=== PATIENT | male | born 1935 | race Caucasian/White ===

== ENCOUNTER → 2016-12-07 | Outpatient (REF) | payer MEDICARE ==
[2016-12-07 12:20] LABS: FOLATE > 24.0 NG/ML; VITAMIN B12 LEVEL 661 PG/ML
[2016-12-07 12:32] LABS: ALBUMIN 4.1 GM/DL (3.2-5.2); ALBUMIN/GLOBULIN RATIO 1.41 (1.00-1.93); ALKALINE PHOSPHATASE 74 U/L (45-117); ALT/SGPT 18 U/L (12-78); ANION GAP 6 MEQ/L (8-16); AST/SGOT 15 U/L (15-37); BILIRUBIN,TOTAL 0.6 MG/DL (0.2-1.0); BLOOD UREA NITROGEN 12 MG/DL (7-18); CALCIUM LEVEL 9.2 MG/DL (8.8-10.2); CARBON DIOXIDE LEVEL 30 MEQ/L (21-32); CHLORIDE LEVEL 105 MEQ/L (98-107); CREATININE FOR GFR 1.08 MG/DL (0.70-1.30); GLOMERULAR FILTRATION RATE > 60.0 (>42); GLUCOSE, FASTING 103 MG/DL (83-110); MAGNESIUM LEVEL 2.2 MG/DL (1.8-2.4); POTASSIUM SERUM 4.5 MEQ/L (3.5-5.1); SODIUM LEVEL 141 MEQ/L (136-145)
== END ==
LOC: M SFHCPLAZ 08:38
PROVIDERS: ATTEND Internal Medicine
DX: I10 Essential (primary) hypertension (principal); R53.82 Chronic fatigue, unspecified

== ENCOUNTER 2017-07-13 15:09 | Inpatient (IN) | payer MEDICARE ==
[~2017-07-13] VITALS: Ht 172.7 cm; Wt 93.0 kg
[2017-07-13] MEDS ORDERED: VENTAER INH (15:28)
[2017-07-13] MEDS ORDERED: BUPR150T3 PO (15:28)
[2017-07-13] MEDS ORDERED: ASPI81TA85 PO (15:28)
[2017-07-13] MEDS ORDERED: COQ1200C2 PO (15:28)
[2017-07-13] MEDS ORDERED: NITR0.4S14 SL (15:28)
[2017-07-13] MEDS ORDERED: OMEP20CA3 PO (15:28)
[2017-07-13] MEDS ORDERED: CART240C3 PO (15:28)
[2017-07-13] MEDS ORDERED: ATOR1TAB19 PO (15:28)
[2017-07-13] MEDS ORDERED: FLOM5CAP PO (15:28)
[2017-07-13] MEDS ORDERED: NORC1TAB4 PO (15:28)
[2017-07-13] MEDS ORDERED: LOSA100T36 PO (15:28)
[2017-07-13] MEDS ORDERED: MORPHINE 4 MG/ML 1ML SYRINGE IV ONE ×2 (15:45→16:45)
--- NOTE | 2017-07-13 16:20 | REP ---
CT study of the cervical spine without contrast: History: Trauma. Technique: Helical scanning is acquired and overlapping 2 mm high resolution axial images were generated and reviewed at bone and soft tissue window settings. Coronal and sagittal multiplanar re-formations images are generated. CT findings: There is no evidence of cervical spine element fracture. No skull base fracture is seen. Cervical vertebral body heights are preserved. Alignment is normal. Facet joints are normally aligned bilaterally at each cervical level on multiplanar re-formations images. There is no evidence of intraspinal or paraspinal hematoma. No extra vertebral abnormality is seen. There is degenerative spondylosis change with degenerative disc disease in the noted in multiple levels most pronounced at C3-4, C5-6 and C6-7. Osteoarthritic changes are noted in the facet joints throughout the cervical spine. Impression: Degenerative spondylosis. Otherwise negative CT study of the cervical spine without contrast. No fracture seen. Signed by Timothy Earl MD 07/13/2017 05:01 P
--- NOTE | 2017-07-13 16:20 | REP ---
CT study brain without contrast: History: Trauma. Findings: Preliminary digital carbonizer radiograph is unremarkable. Bone window settings show no evidence of skull fracture or significant scalp hematoma. Vascular calcification is observed in the distal vertebral and distal carotid arteries. There is diffuse mild cerebral atrophy. Small vessel periventricular white matter changes are seen. There is no evidence of intracranial hemorrhage. No mass, extra-axial fluid collection, infarct or midline shift is seen. Impression: Vascular calcification, diffuse atrophy and small vessel changes. No acute intracranial abnormality. Signed by Timothy Earl MD 07/13/2017 05:01 P
--- NOTE | 2017-07-13 16:31 | REP ---
AP pelvis and left hip total four views: Comparison is 03/28/2007. On the AP pelvis. There is an old healed impacted fracture of the right femoral neck, unchanged from the prior study. There is an acute left femoral neck fracture with cephalic and slight migration of the proximal fracture fragment. No dislocation. Left hip three views: There is a femoral neck fracture with slight cephalic migration of the distal fracture fragment. No dislocation. No other acute pelvic fractures are identified. Signed by Adriano Song MD 07/13/2017 04:22 P
--- NOTE | 2017-07-13 16:33 | REP ---
Chest, single AP view, the patient supine: There are no comparison studies. The patient's comparison study of 07/13/2017 is not available on the PACS archive for reasons unknown to this examiner. There are no infiltrates or effusions. There is a 6 mm left lower lobe lung nodule. I cannot document stability of this nodule in the absence of prior studies. CT might be considered for further evaluation. I suspect there is a hiatal hernia. Cardiac size is normal. The wilmar, mediastinum, and bony thorax are unremarkable. Impression: There are no acute infiltrates or effusions. There is a 6 mm nodule inferiorly in the left lung. Probable hiatal hernia. Signed by Adriano Song MD 07/13/2017 04:25 P
--- NOTE | 2017-07-13 16:34 | REP ---
Left femur three views: Comparison is the left hip dated 03/08/2017. There is a fracture of the femoral neck with slight cephalic migration of the distal fracture fragment. No dislocation. No other fractures of the left femur are identified. There are no calcifications or foreign bodies. Signed by Adriano Song MD 07/13/2017 04:26 P
[2017-07-13 16:38] LABS: BASO # 0.1 10^3/uL (0.0-0.2); BASO % 0.5 % (0.0-1.0); EOS % 0.2 % (0.0-3.0); IMMATURE GRANULOCYTE % 0.5 % (0-0); LYMPH # 1.1 10^3/uL (1.5-4.5); LYMPH % 7.5 % (24.0-44.0); MEAN CORPUSCULAR HEMOGLOBIN 32.3 pg (27.0-33.0); MEAN CORPUSCULAR VOLUME 94.9 fl (80.0-96.0); MONO # 1.3 10^3/uL (0.0-0.8); MONO % 8.9 % (0.0-5.0); NEUTROPHILS # 12.3 10^3/uL (1.8-7.7); NEUTROPHILS % 82.4 % (36.0-66.0); PLATELET COUNT, AUTOMATED 343 10^3/uL (150-450); WHITE BLOOD COUNT 14.9 10^3/uL (4.0-10.0)
[2017-07-13 16:54] LABS: ANION GAP 9 MEQ/L (8-16); BLOOD UREA NITROGEN 20 MG/DL (7-18); CALCIUM LEVEL 9.2 MG/DL (8.8-10.2); CARBON DIOXIDE LEVEL 28 MEQ/L (21-32); CHLORIDE LEVEL 102 MEQ/L (98-107); GLOMERULAR FILTRATION RATE > 60.0 (>35); GLUCOSE, FASTING 110 MG/DL (83-110); POTASSIUM SERUM 4.7 MEQ/L (3.5-5.1); SODIUM LEVEL 139 MEQ/L (136-145)
[2017-07-13] MEDS ORDERED: NS 1,000 ML IV SCH (17:09)
[2017-07-13] MEDS: NS 1,000 ML IV SCH (17:20)
[2017-07-13] MEDS ORDERED: BISACODYL 5 MG TAB PO PRN (17:45)
[2017-07-13] MEDS ORDERED: ONDANSETRON 4MG/2ML VIAL (J2405) IV PRN (17:45)
[2017-07-13] MEDS ORDERED: ACETAMINOPHEN TAB 650MG DOSE (2X325MG) PO PRN (17:45)
[2017-07-13] MEDS ORDERED: MORPHINE 2 MG/ML 1ML SYRINGE IV PRN (17:45)
[2017-07-13 17:56] LABS: INR 1.04
[2017-07-13] MEDS ORDERED: NASA1SPR (17:58)
[2017-07-13] MEDS: PERCOCET 5MG/325MG TAB PO PRN ×2 (18:50→23:11)
[2017-07-13] MEDS ORDERED: ALBUTEROL 90 MCG/ACT 8GM HFA INHALER INH PRN (19:45)
[2017-07-13] MEDS ORDERED: NITROGLYCERIN 0.4 MG SUBL TABLET SL PRN (19:45)
[2017-07-13] MEDS: TAMSULOSIN 0.4 MG CAP PO SCH (21:31)
[2017-07-13] MEDS: ATORVASTATIN 10 MG TAB PO SCH (21:31)
[2017-07-13] MEDS: OMEPRAZOLE 20 MG CAP PO SCH (21:31)
[2017-07-13] MEDS: LOSARTAN 50 MG TAB PO SCH (21:32)
[2017-07-13 22:00] VITALS: BP 146/65
--- NOTE | 2017-07-14 04:48 | ECGEPIP ---
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
[2017-07-14 06:00] VITALS: BP 118/59
[2017-07-14] MEDS: NS 1,000 ML IV SCH (06:16)
[2017-07-14] MEDS: PERCOCET 5MG/325MG TAB PO PRN ×3 (06:16→22:27)
--- NOTE | 2017-07-14 06:40 | CR ---
DATE OF CONSULTATION: 07/13/2017 CHIEF COMPLAINT: Left hip fracture. HISTORY OF PRESENT ILLNESS This 82-year-old gentleman was carrying some crates to [facility] down the stairs, fell, injury occurred at home, had significant discomfort and could not ambulate. Injury happened about 12:30. There was a significant amount of time invested getting the patient out of his house to get to the hospital. He complains of left hip pain and groin pain. He did not have a loss of consciousness. He does have a history of right femoral fracture treated by Dr. Rizvi in the past with xavier placement and removal about 50 years ago. Never had problems with the left hip before. Imaging studies of the left hip reflect femoral neck fracture displaced. PAST MEDICAL HISTORY: Medical history includes coronary artery disease with stent placement in the past. Hypertension. The patient states otherwise reasonably healthy. Never had a heart attack. PAST SURGICAL HISTORY Includes Juitt nail right femur in the past. SOCIAL HISTORY: He is retired. Does not smoke. , accompanied by his spouse. FAMILY HISTORY: Not contributory. ALLERGIES: Does report an allergy to PENICILLINS producing rash. REVIEW OF SYSTEMS: Complaining only of hip pain around the left hip, groin region, and some across the low back posterior to the left hip. Denying numbness, tingling currently in lower extremities. Denying chest pain, denying headache, denying nausea, shortness of breath, endocrine trouble or skin trouble CLINICAL EXAMINATION: Alert and cooperative. Mood and affect appropriate. Appears his stated vintage of 82 or a bit younger. Healthy skin, face, upper and lower extremities. He has mild obesity. Warm, well-perfused lower extremities. Palpable pulse regular at a pace of about 76 beats per minute. Dorsalis pedis pulses palpable. No swelling about the knees, Pain with any manipulation of the left hip. Abdomen is not distended. Normocephalic, atraumatic. No shortness of breath. IMAGING STUDIES: As above. LABORATORY FINDINGS: Hematocrit 41.2, white blood cell count 14.9. INR 1.04. Creatinine 1.2. MEDICATIONS AT HOME: Include aspirin and blood pressure medications. Denies anticoagulants. IMPRESSION: Left hip femoral neck fracture displaced. RECOMMENDATIONS: I coordinated with the hospitalist service for medical optimization. I talked with Dr. Vences. We will place the patient on the operating room schedule as an add-on for tomorrow pending medical optimization. I had a discussion with the patient about the surgery to be performed. This included a virgilio discussion of the pathology involved, procedure proposed which will be a cemented hemiarthroplasty or partial hip replacement. This include but are not limited to pain, failure, need for more surgery, dislocation, infection, , blood clots and other issues. The patient understands the risks. He agrees to proceed with surgery. For further details, please refer to the medical record. Approximately 55 minutes was invested in the workup and care of this patient, more than 50% of which was [id number] time, and additional time spent in coordination of care.
[2017-07-14] MEDS ORDERED: CLINDAMYCIN 600 MG in APPROPRIATE DILUENT 1 EA IV ONE (06:45)
[2017-07-14 07:10] LABS: BASO # 0.1 10^3/uL (0.0-0.2); BASO % 0.8 % (0.0-1.0); EOS # 0.2 10^3/uL (0.0-0.50); IMMATURE GRANULOCYTE % 0.2 % (0-0); LYMPH # 1.1 10^3/uL (1.5-4.5); LYMPH % 13.2 % (24.0-44.0); MEAN CORPUSCULAR HEMOGLOBIN 32.7 pg (27.0-33.0); MEAN CORPUSCULAR HGB CONC 34.5 g/dl (32.0-36.5); MEAN CORPUSCULAR VOLUME 94.8 fl (80.0-96.0); NEUTROPHILS # 6.1 10^3/uL (1.8-7.7); NEUTROPHILS % 71.8 % (36.0-66.0); PLATELET COUNT, AUTOMATED 266 10^3/uL (150-450); WHITE BLOOD COUNT 8.5 10^3/uL (4.0-10.0)
[2017-07-14 07:24] LABS: INR 1.17
[2017-07-14 07:37] LABS: ANION GAP 7 MEQ/L (8-16); BLOOD UREA NITROGEN 16 MG/DL (7-18); CALCIUM LEVEL 7.9 MG/DL (8.8-10.2); CARBON DIOXIDE LEVEL 26 MEQ/L (21-32); CHLORIDE LEVEL 104 MEQ/L (98-107); CHOLESTEROL LEVEL 130 MG/DL (<200); CREATININE FOR GFR 0.99 MG/DL (0.70-1.30); GLOMERULAR FILTRATION RATE > 60.0 (>35); GLUCOSE, FASTING 111 MG/DL (83-110); SODIUM LEVEL 137 MEQ/L (136-145); TRIGLYCERIDES LEVEL 50 MG/DL (<150)
--- NOTE | 2017-07-14 07:37 | HPE ---
DATE OF ADMISSION: 07/13/2017 PRIMARY CARE PROVIDER: Dr. Timmy Sylvester INPATIENT HOSPITALIST ATTENDING: Dr. Tra Peña CHIEF COMPLAINT: Fall. Left hip fracture. HISTORY OF PRESENT ILLNESS: This is an 82-year-old male with history of coronary artery disease (CAD), with stent. The patient follows with Dr. Osman, channel lip wetter at [facility] in [place], hypertension, left anterior descending (LAD), annuloplasty 2002, right coronary artery (RCA) stent August 2004, repeat stent for same lesion, and prior stent on 09/2006. Cardiac catheter 06/2008 with patent stents and significant LAD disease. Echocardiogram September 2016, injection fraction 55 to 60% with no reversible ischemia, presbyesophagus by upper endoscopy July 2005, Raynaud's phenomenon secondary to Toprol presents to the emergency room with complaints of hip pain, status post fall at home. The patient was unloading cases from [employer] into his cellar when he missed a step and landed on his buttock and hip causing severe pain, unable to ambulate. He was found to have a femoral neck fracture and subsequently brought in to the emergency room for surgical repair. The patient denies any prodromal symptoms, chest pain, pressure, tightness, diaphoresis, palpitations, lightheadedness, or near syncopal episode prior to the episode. He has been in his usual state of health and had stress test done less than 6 months ago and has seen Dr. Osman in May with a "clean bill of health" by his channel lip wetter at [facility] in [place]. In the ER left femoral x-rays shows a fracture of the femoral neck with slight cephalic migration with distal fracture fragment , but no dislocation. The patient is planned for surgical intervention in the morning. EKG shows sinus rhythm, marked LAD and right bundle branch block, otherwise, troponins are negative and patient is denying any chest pain, pressure or tightness. The patient has had head trauma with no loss of consciousness or confusion. CT of the head was negative and no acute intracranial abnormalities. PAST MEDICAL HISTORY: CAD, stents. Recent stress test, Dr. Osman less than 6 months ago. Echocardiogram with ejection fraction of 60 to 65%. No significant valvular disease. Hypertension. Hypercholesterolemia. Obesity. Raynaud's phenomenon secondary to beta blockade. Urine retention. Polyosteoarthritis. Pseudoclaudication. Presbyesophagus. PAST SURGICAL HISTORY: Stent placements, RCA stent August 2004, September 2006, cardiac cath 06/2008. Stress echocardiogram September 2016, EF 55 to 60% with no reversible ischemia. Inguinal herniorrhaphy. Transurethral resection of prostate (TURP) procedure 07/2009. Repeat stricture dilation 01/2010. 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 Former smoker. Quit smoking over 10 years ago. No alcohol use. FAMILY HISTORY: Father of laryngeal cancer (CA), mother of some sort of intestinal carcinoma and CVA. Sister with hypercholesterolemia, another sister alive and well. ALLERGIES: PENICILLIN, causing hives. DUST and POLLEN. VYTORIN, causing urinary retention. CRESTOR, muscle aches. ZETIA, muscle aches. CYMBALTA, diarrhea. HOME MEDICATIONS: - Barton 5/325 one tablet every 4 as needed for pain - aspirin 81 daily - Co-Enzyme Q 200 every pm - Nasacort two sprays daily as needed - albuterol as needed every 4 - atorvastatin 10 mg every pm - bupropion 150 mg daily - cardia 240 mg daily - losartan 100 every pm - nitroglycerin 0.4 as needed - omeprazole 20 mg twice a day - Flomax 0.4 every pm REVIEW OF SYSTEMS: Per HPI, 12-point system otherwise negative. PHYSICAL EXAMINATION: Temperature 98, pulse 78, respiratory rate 16, blood pressure 136/70, 96% on room air. GENERAL: The patient is awake, alert and oriented times three. Appears younger than his stated age. No jugular venous distention. No thyromegaly. Pupils round, reactive to light and accommodation. Moist mucous membranes. No thyromegaly, cervical lymphadenopathy. No carotid bruits. Lungs are clear to auscultation. No wheezing, rales or rhonchi. Heart: S1, S2. Sinus rhythm. No murmurs, rubs or gallops. Abdomen is obese, soft, nontender. Nondistended. Extremities: No cyanosis, clubbing or any pitting edema. Skin: Warm, dry, well perfused. The patient has some limited range of motion of the left hip secondary to severe pain on external rotation. LABORATORY DATA: White count 14.9, hemoglobin 14, hematocrit 41, platelet count 343. Sodium 139, potassium 4.7, chloride 102, bicarbonate 20, BUN 20, creatinine 1.2, glucose of 110. EKG: Sinus rhythm, ventricular rate of 84, marked LAD right bundle branch block. Cardiac marker pending. IMAGING STUDIES: Femoral x-ray shows fracture of the femoral neck with slight cephalic migration distal fracture segment. No dislocation. CT of the head: No acute intracranial pathology. Hip and pelvic x-ray: Femoral neck fracture. Distal fracture fragment. No dislocation. Cervical spine CT: Negative CT of the cervical spine. Chest x-ray: No acute infiltrate. 6 mm nodule inferiorly in the left lung. Probable hiatal hernia. ASSESSMENT AND PLAN: This is an 82-year-old male that was in his usual state of health, missed a step while bringing cases down from [employer] into his cellar. Fell backwards after missing a step and hit his head, hip and landed on his left hip, sustaining a left femoral neck fracture. The patient had a recent stress test with Dr. Osman at [facility] in [place] which was negative for ischemia. The patient is admitted for ORIF and hip replacement. The patient will be admitted as an inpatient for two midnights and will be assigned to Dr. Tra Peña for the following issues: 1. Preoperative medical clearance. Patient was in his usual state of health, had no prodromal symptoms. Denies any chest pain, pressure, tightness, lightheadedness, or near syncopal episode prior to the fall. It appears to have been a mechanical fall after missing a step. He has had a stress test done recently from his channel lip wetter's office in [place], Dr. Osman. Will obtain those records prior to clearing for surgery. The patient may resume all medications except the anticoagulation, antiplatelets, therefore will hold the patient's aspirin, but may continue his blood pressure medications including diltiazem and losartan. May continue on Lipitor for now. Again, until we have reviewed patient's stress test, the patient is not cleared for surgery at this time. Nurses have been made aware that the patient should sign medical release form and the records should be sent over. The patient will be kept nothing by mouth after midnight, however, in preparation for surgery, once medically cleared. 2. Left hip femoral neck fracture, status post mechanical fall. Pain medications. Orthopedic surgery, Dr. Parks has been made aware. I do not anticipate any issues if patient's stress test is normal, but will obtain those records prior to clearance for surgery. Dr. Peña will be following up in the morning. At this time, all anticoagulants will be held. Patient will be given morphine, Percocet for pain control. Bedrest for now until surgical intervention. 3. Hypertension. Continue home dose of diltiazem, losartan. 4. Hyperlipidemia. Continue on Lipitor. 5. Abnormal EKG with right bundle branch block. Prior history of CAD and stent placement. Obtain recent stress test result from patient's cardiologists in [place], Dr. Loya. Check cardiac markers. EKG has no acute ischemia. 6. Leukocytosis. Most likely reactive. 7. Obesity. Check lipid profile in the morning. Continue on his statins. 8. Deep venous thrombosis (DVT) prophylaxis with compression stockings. The patient will be assigned to Dr. Tra Peña at 7:00 pm 07/13/2017. ABEL
[2017-07-14] MEDS: OMEPRAZOLE 20 MG CAP PO SCH (09:14)
[2017-07-14] MEDS: buPROPion **XL** TABLET 150MG (WELLBUTRIN XL) PO SCH (09:14)
[2017-07-14 14:00] VITALS: BP 146/66
--- NOTE | 2017-07-14 15:01 | IPNPDOC ---
Text Note Date of Service The patient was seen on 07/14/17. NOTE Subjective: Patient states he feels well. Has occasional dizziness. Denies chest pain/palpitations. States he is able to go up 2 flights of stairs without chest pain/palpitations. States this fall was a mechanical fall down the stairs. His pain is well-controlled. I have also spoken to his exchange floor manager Dr. Miroslava Loya, who notes that the patient had greater than 7 mets while doing the stress echo recently, and there is no concern for ischemia. She also notes that the patient had a nuclear stress test 2 years ago. She recommends no further cardio workup prior to his hip replacement. Objective: Vitals: (see below) General: No acute distress, laying comfortably in bed. HEENT: Moist mucous membranes. Neck: No JVD or lymphadenopathy Cardiac: RRR, No murmurs Pulm: Clear to auscultation b/l. No wheezing, rhonchi Abd: NT/ND + BS Ext: No edema or cyanosis. Left hip pain with movement. Distal pulses intact. Labs (see below) Images: Assessment/Plan 1. Acute hip fracture status post mechanical fall. Orthopedics on consult with plan to go to the OR today. Patient was able to do greater than 7 METs on stress echo recently. He has been cleared by his exchange floor manager Dr. Loya for his hip replacement. The patient denied chest pain/palpitations prior to this fall. RCR I of 1, 0.9% risk of major cardiac event. Intermediate risk procedure. Patient is medically optimized. 2. History of CAD status post PCIx2. Aspirin held prior to surgery. Will need this restarted once patient completes anticoagulation for DVT prophylaxis. 3. Hypertension- controlled continue home meds 4. Hyperlipidemia- on statin 5. Leukocytosis- likely reactive. No signs of infection. We'll continue to monitor. 6. Obesity DVT prophy: SCDs for now, per orthopedics after OR Demetra HATHAWAY, I+O VSDemetra, I+O Laboratory Tests 07/13/17 16:21 Red Blood Count 4.34, Mean Corpuscular Volume 94.9, Mean Corpuscular Hemoglobin 32.3, Mean Corpuscular Hemoglobin Concent 34.0, Red Cell Distribution Width 14.0 , Neutrophils (%) (Auto) 82.4 H, Lymphocytes (%) (Auto) 7.5 L, Monocytes (%) ( Auto) 8.9 H, Eosinophils (%) (Auto) 0.2, Basophils (%) (Auto) 0.5, Neutrophils # (Auto) 12.3 H, Lymphocytes # (Auto) 1.1 L, Monocytes # (Auto) 1.3 H, Eosinophils # (Auto) 0.0, Basophils # (Auto) 0.1, Calcium Level 9.2, Total Creatine Kinase 182 07/14/17 07:00 Red Blood Count 4.07 L, Mean Corpuscular Volume 94.8, Mean Corpuscular Hemoglobin 32.7, Mean Corpuscular Hemoglobin Concent 34.5, Red Cell Distribution Width 14.0, Neutrophils (%) (Auto) 71.8 H, Lymphocytes (%) (Auto) 13.2 L, Monocytes (%) (Auto) 12.0 H, Eosinophils (%) (Auto) 2.0, Basophils (%) ( Auto) 0.8, Neutrophils # (Auto) 6.1, Lymphocytes # (Auto) 1.1 L, Monocytes # ( Auto) 1.0 H, Eosinophils # (Auto) 0.2, Basophils # (Auto) 0.1 Vital Signs Date Time Temp Pulse Resp B/P (MAP) Pulse Ox O2 Delivery O2 Flow Rate FiO2 07/14/17 09:14 79 118/59 07/14/17 06:50 Nasal Cannula 2.0 07/14/17 06:46 17 07/14/17 06:00 99.1 88 I&O- Last 24 Hours up to 6 AM 07/15/17 06:00 Output Total 100 ml Balance -100 ml WARNER VAZQUEZ MD Jul 14, 2017 15:01
[2017-07-14] MEDS ORDERED: CLINDAMYCIN INJ 900MG/6ML VIAL As Ordered ONE (17:00)
[2017-07-14] MEDS ORDERED: EPINEPHrine INJ 1 MG/ML 1ML AMP As Ordered ONE (19:21)
[2017-07-14] MEDS ORDERED: VANCOMYCIN 1000 MG/20 ML VIAL (J3370) As Ordered ONE (19:37)
[2017-07-14] MEDS ORDERED: LIDOCAINE W/EPINEPHRINE 1% 20ML VIAL As Ordered ONE (19:45)
[2017-07-14] MEDS ORDERED: BUPIVACAINE LIPOSOME/PF 1.3% 20 ML VIAL (13.3MG/ML)(EXPAREL) As Ordered ONE (19:45)
[2017-07-14] MEDS ORDERED: PHENYLephrine HCL 500 MCG/5 ML (100MCG/ML) SYRINGE (J2370) As Ordered ONE (20:19)
[2017-07-14] MEDS ORDERED: ePHEDrine SULFATE 25 MG/5 ML(5MG/ML) SYRINGE As Ordered ONE (20:19)
[2017-07-14] MEDS ORDERED: PROPOFOL 200 MG/20 ML VIAL As Ordered ONE ×2 (20:30→21:52)
[2017-07-14] MEDS ORDERED: LR 1,000 ML IV SCH (22:00)
[2017-07-14] MEDS ORDERED: fentaNYL 100 MCG/2 ML INJECTION (J3010) IV PRN (22:00)
[2017-07-14] MEDS ORDERED: METOCLOPRAMIDE INJ 10MG/2ML VIAL (J2765) IV PRN (22:00)
[2017-07-14] MEDS ORDERED: ONDANSETRON 4MG/2ML VIAL (J2405) IV PRN ×2 (22:00→23:45)
[2017-07-14] MEDS ORDERED: PERCOCET 5MG/325MG TAB PO PRN ×2 (22:00→23:45)
[2017-07-14] MEDS ORDERED: LEVALBUTEROL 1.25 MG/0.5 ML CONCENTRATE NEB As Ordered ONE (22:23)
[2017-07-14] MEDS ORDERED: PERCOCET 5MG/325MG TAB As Ordered ONE (23:21)
[2017-07-14] MEDS ORDERED: WARFARIN SOD 1 MG TAB PO ONE (23:45)
[2017-07-14] MEDS ORDERED: MORPHINE 4 MG/ML 1ML SYRINGE IV PRN (23:45)
[2017-07-14] MEDS ORDERED: WARFARIN SOD 2.5 MG TAB PO ONE (23:45)
[2017-07-15] VITALS (9 sets, daily range): BP systolic 108–161; BP diastolic 52–70
[2017-07-15] MEDS: ATORVASTATIN 10 MG TAB PO SCH ×2 (00:38→20:48)
[2017-07-15] MEDS: TAMSULOSIN 0.4 MG CAP PO SCH ×3 (00:38→20:47)
[2017-07-15] MEDS: D5W/LR 1,000 ML IV SCH ×2 (00:38→09:45)
[2017-07-15] MEDS: LOSARTAN 50 MG TAB PO SCH ×2 (00:39→20:49)
[2017-07-15] MEDS: OMEPRAZOLE 20 MG CAP PO SCH ×3 (00:41→20:48)
[2017-07-15] MEDS: PERCOCET 5MG/325MG TAB PO PRN ×4 (05:35→20:48)
[2017-07-15] MEDS ORDERED: VANCOMYCIN HCL 1,000 MG, VIAL MATE ADAPTER 1 EACH in D5W 250 ML IV ONE (06:00)
--- NOTE | 2017-07-15 10:17 | REP ---
LEFT HIP: Two views of the left hip are performed. There is a femoral prosthesis at the hip. Osseous structures are intact and well aligned. Signed by Adriano Pinon MD 07/15/2017 04:57 P
[2017-07-15 11:02] LABS: MEAN CORPUSCULAR HEMOGLOBIN 32.8 pg (27.0-33.0); MEAN CORPUSCULAR HGB CONC 34.4 g/dl (32.0-36.5); MEAN CORPUSCULAR VOLUME 95.2 fl (80.0-96.0); PLATELET COUNT, AUTOMATED 241 10^3/uL (150-450); RED CELL DISTRIBUTION WIDTH 13.8 % (11.5-14.5); WHITE BLOOD COUNT 10.4 10^3/uL (4.0-10.0)
[2017-07-15 11:12] LABS: INR 1.15
[2017-07-15 11:21] LABS: ANION GAP 6 MEQ/L (8-16); BLOOD UREA NITROGEN 10 MG/DL (7-18); CALCIUM LEVEL 7.8 MG/DL (8.8-10.2); CARBON DIOXIDE LEVEL 29 MEQ/L (21-32); CHLORIDE LEVEL 99 MEQ/L (98-107); CREATININE FOR GFR 0.99 MG/DL (0.70-1.30); GLOMERULAR FILTRATION RATE > 60.0 (>35); GLUCOSE, FASTING 137 MG/DL (83-110); MAGNESIUM LEVEL 1.9 MG/DL (1.8-2.4); POTASSIUM SERUM 4.1 MEQ/L (3.5-5.1); SODIUM LEVEL 134 MEQ/L (136-145)
[2017-07-15] MEDS: MOM 30ML SUSPENSION UDC PO SCH (12:05)
[2017-07-15] MEDS: METAMUCIL (PSYLLIUM) PACKET PO SCH (12:05)
[2017-07-15] MEDS: buPROPion **XL** TABLET 150MG (WELLBUTRIN XL) PO SCH (12:07)
[2017-07-15] MEDS ORDERED: WARFARIN SOD 5 MG TAB PO ONE (17:00)
--- NOTE | 2017-07-15 21:24 | IPN ---
DATE: 07/13/2017 Patient seen and examined. Patient was febrile overnight. This morning, patient had a bout of urinary retention with 600 postvoid residual after straight catheterization and subsequently, during the day today, patient was able to void. Denies any chest pain, pressure, discomfort. Passing gas. Has not had a bowel movement yet. Denies any respiratory distress. Currently comfortable. VITAL SIGNS: Temperature 102, pulse 99, respirations 18, blood pressure 143/69, pulse oximetry 89% on 2 liters nasal cannula. LABORATORY: WBC 10.4, hemoglobin and hematocrit (H and H) 11.7 and 34, platelets 241. Chemistry: Sodium 134, potassium 4.1, chloride 99, BUN 10, creatinine 0.99, bicarbonate 29. Urinalysis (UA) has been negative. PHYSICAL EXAMINATION: GENERAL: Patient alert and comfortable, in no acute distress. HEENT: Normocephalic, atraumatic. Moist mucous membranes. NECK: Supple. CARDIAC: Regular rate and rhythm. Normal S1, S2. PULMONARY: Bilateral clear to auscultation. No wheezes, rales or rhonchi. ABDOMEN: Soft, nontender, obese. Positive bowel sounds. EXTREMITIES: Distal pulses intact. Left hip dressing clean, dry, intact, with mild bruising. No edema bilateral lower extremities. ASSESSMENT AND PLAN: This is an 82-year-old male patient with underlying medical history of coronary artery disease with stents. Cardiology, Dr. Loya, at [facility]. Hypertension with left anterior descending annuloplasty 2002, right coronary artery stent August 2004, repeat stent of the same lesion and prior stent in 2006, cardiac catheterization in June 2008 with patent stent, insignificant left anterior descending (LAD) disease. Echocardiogram in September shows ejection fraction (EF) of 55. September 2016 was 55-60% ejection fraction. Regnaud's phenomenon. Patient was in his usual state of health, missed a step when bringing case down from [email or web address] to his cellar, fell backwards after missing a step and hit his head and hip and landed on his left hip, sustaining a left femoral neck fracture. Patient had recent stress test by Dr. Loya at [facility] in [place], which was negative for ischemic disease. Status post surgery with hemiarthroplasty. PROBLEMS: 1. Acute left hip fracture. Status post surgery by orthopedics, postoperative day number one. Patient has no recent cardiac event. Holding aspirin given patient is currently on Coumadin. Activity status, wound care, weightbearing, physical therapy, deep venous thrombosis (DVT) prophylaxis, are as per orthopedics. Bowel regimen prescribed. Team management as per orthopedics. Patient on Coumadin. Follow up INR. 2. History of coronary artery disease. Aspirin on hold, given patient is on Coumadin. Will consider restarting aspirin as outpatient. Continue statin. 3. Fevers. Likely reactive to the fracture. Culture has been sent. Urinalysis (UA) has been negative. 4. Urinary retention. Patient was straight catheterized. UA has been negative. Flomax has been added. Will continue to monitor closely with bladder scans. 5. Hypertension. Continue Cardizem, losartan. Monitor blood pressure. Adjust as needed. 6. Dyslipidemia. Continue statin. 7. Leukocytosis. Resolved. 8. Obesity. Complicating care. 9. Deep venous thrombosis (DVT) prophylaxis. Patient on Coumadin as per orthopedics. DISPOSITION: Acute rehabilitation screening. Pending clinical improvement.
[2017-07-16 06:00] VITALS: BP 108/53
[2017-07-16 06:23] LABS: MEAN CORPUSCULAR HEMOGLOBIN 32.7 pg (27.0-33.0); MEAN CORPUSCULAR HGB CONC 33.8 g/dl (32.0-36.5); MEAN CORPUSCULAR VOLUME 96.5 fl (80.0-96.0); PLATELET COUNT, AUTOMATED 236 10^3/uL (150-450); RED CELL DISTRIBUTION WIDTH 13.9 % (11.5-14.5); WHITE BLOOD COUNT 9.9 10^3/uL (4.0-10.0)
[2017-07-16 06:37] LABS: INR 1.43
[2017-07-16 07:01] LABS: CALCIUM LEVEL 8.2 MG/DL (8.8-10.2); CREATININE FOR GFR 1.25 MG/DL (0.70-1.30); GLOMERULAR FILTRATION RATE 59.2 (>35); MAGNESIUM LEVEL 2.2 MG/DL (1.8-2.4); POTASSIUM SERUM 3.7 MEQ/L (3.5-5.1)
[2017-07-16] MEDS ORDERED: MAGNESIUM CITRATE 300 ML BTL PO ONE (08:00)
[2017-07-16] MEDS: TAMSULOSIN 0.4 MG CAP PO SCH ×2 (08:44→21:31)
[2017-07-16] MEDS: OMEPRAZOLE 20 MG CAP PO SCH ×2 (08:44→21:31)
[2017-07-16] MEDS: buPROPion **XL** TABLET 150MG (WELLBUTRIN XL) PO SCH (08:45)
[2017-07-16] MEDS: MOM 30ML SUSPENSION UDC PO SCH (08:45)
[2017-07-16] MEDS: METAMUCIL (PSYLLIUM) PACKET PO SCH (08:45)
--- NOTE | 2017-07-16 10:05 | IPN ---
DATE: 07/16/2017 Mr. Barron was seen while rounding for the hospitalist group. He is under the care of Dr. Peña. He was admitted with a left hip fracture. He was seen by orthopedics for this. He has a history of recurrent urinary retention. He has had this in the past. He sees a urologist in [place]. Flomax was added, but he still is having urinary retention, over 800 mL, so we are putting an indwelling catheter in, which he will keep in upon discharge. He has hypertension, coronary artery disease, hyperlipidemia. PHYSICAL EXAMINATION: Blood pressure 108/53, pulse 56, respiratory rate 18, 92% oxygen saturation. GENERAL APPEARANCE: Resting comfortably, no distress. No jugular venous distention (JVD). LUNGS: Decreased breath sounds but clear. HEART: Regular rate and rhythm. 1/6 systolic ejection murmur. ABDOMEN: Soft, nontender. No masses. LABORATORY DATA: White count is 9.9, hemoglobin 11.3, platelets 236. Sodium 132, potassium 3.7, BUN 15, creatinine 1.2, glucose 133. INR is 1.43. IMPRESSION: 1. Acute urinary retention and indwelling Ludny catheter with plans for discharge with indwelling catheter in place with a leg bag. He has a urologist in [place] that he can followup with and have it removed there and ensure ability to void. Continue tamsulosin 0.4 mg twice a day. 2. Hypertension. Well controlled on current regimen. 3. Hip fracture. Per orthopedics. Warfarin dosing per orthopedics. 4. Coronary artery disease, stable and asymptomatic. Blood pressure is well controlled. 5. Hyperlipidemia. Continue statin therapy. Dr. Peña will resume the patient's inpatient care in the morning.
[2017-07-16] MEDS ORDERED: MAGNESIUM CITRATE 300 ML BTL PO PRN (12:00)
[2017-07-16 14:00] VITALS: BP 152/69
[2017-07-16] MEDS: PERCOCET 5MG/325MG TAB PO PRN ×2 (14:15→21:32)
[2017-07-16] MEDS ORDERED: WARFARIN SOD 7.5 MG TAB PO ONE (17:00)
--- NOTE | 2017-07-16 20:57 | ECGEPIP ---
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 1st degree AV block new Compared with 07/13/2017. Electronically Signed On 07-16-2017 20:56:53 EST by Adis Ruth
[2017-07-16] MEDS: LOSARTAN 50 MG TAB PO SCH (21:31)
[2017-07-16] MEDS: ATORVASTATIN 10 MG TAB PO SCH (21:31)
[2017-07-16 22:00] VITALS: BP 121/61
[2017-07-17 06:00] VITALS: BP 142/82
[2017-07-17] MEDS: PERCOCET 5MG/325MG TAB PO PRN ×3 (06:25→18:45)
[2017-07-17 06:43] LABS: MEAN CORPUSCULAR HEMOGLOBIN 32.8 pg (27.0-33.0); MEAN CORPUSCULAR HGB CONC 34.7 g/dl (32.0-36.5); MEAN CORPUSCULAR VOLUME 94.6 fl (80.0-96.0); PLATELET COUNT, AUTOMATED 258 10^3/uL (150-450); RED CELL DISTRIBUTION WIDTH 13.5 % (11.5-14.5); WHITE BLOOD COUNT 9.8 10^3/uL (4.0-10.0)
[2017-07-17 07:00] LABS: INR 1.59
[2017-07-17 07:03] LABS: ANION GAP 7 MEQ/L (8-16); BLOOD UREA NITROGEN 16 MG/DL (7-18); CARBON DIOXIDE LEVEL 30 MEQ/L (21-32); CHLORIDE LEVEL 96 MEQ/L (98-107); CREATININE FOR GFR 1.08 MG/DL (0.70-1.30); GLOMERULAR FILTRATION RATE > 60.0 (>35); GLUCOSE, FASTING 113 MG/DL (83-110); MAGNESIUM LEVEL 2.4 MG/DL (1.8-2.4); POTASSIUM SERUM 4.2 MEQ/L (3.5-5.1); SODIUM LEVEL 133 MEQ/L (136-145)
[2017-07-17] MEDS: METAMUCIL (PSYLLIUM) PACKET PO SCH (09:00)
[2017-07-17] MEDS: MOM 30ML SUSPENSION UDC PO SCH (09:00)
[2017-07-17] MEDS: TAMSULOSIN 0.4 MG CAP PO SCH ×2 (11:29→21:58)
[2017-07-17] MEDS: OMEPRAZOLE 20 MG CAP PO SCH ×2 (11:30→21:58)
[2017-07-17] MEDS: buPROPion **XL** TABLET 150MG (WELLBUTRIN XL) PO SCH (11:33)
--- NOTE | 2017-07-17 11:48 | IPNPDOC ---
Text Note Date of Service The patient was seen on 07/17/17. NOTE Subjective: Patient states he feels well. Denies CP/palpitations. Objective: Vitals: (see below) General: No acute distress, laying comfortably in bed. HEENT: Moist mucous membranes. Neck: No JVD or lymphadenopathy Cardiac: RRR, No murmurs Pulm: Clear to auscultation b/l. No wheezing, rhonchi Abd: NT/ND + BS Ext: No edema or cyanosis. Left hip pain incision clean/dry. Distal pulses intact. Labs (see below) Images: Assessment/Plan 1. Acute hip fracture status post mechanical fall s/p arthroplasty 07/14 - management per orthopedics 2. History of CAD status post PCIx2. Aspirin held prior to surgery. Will need this restarted once patient completes anticoagulation for DVT prophylaxis. 3. Hypertension- controlled continue home meds 4. Hyperlipidemia- on statin 5. Leukocytosis- likely reactive. No signs of infection. We'll continue to monitor. 6. Obesity 7. Urinary retention - s/p soares - cont flomax. DVT prophy: per ortho VS,Fishbone, I+O VS, Fishbone, I+O Laboratory Tests 07/17/17 06:05 Red Blood Count 3.35 L, Mean Corpuscular Volume 94.6, Mean Corpuscular Hemoglobin 32.8, Mean Corpuscular Hemoglobin Concent 34.7, Red Cell Distribution Width 13.5, Calcium Level 8.0 L Vital Signs Date Time Temp Pulse Resp B/P (MAP) Pulse Ox O2 Delivery O2 Flow Rate FiO2 07/17/17 11:32 18 07/17/17 11:30 92 142/82 07/17/17 06:55 Nasal Cannula 2.0 07/17/17 06:00 99.9 93 07/16/17 09:16 93 I&O- Last 24 Hours up to 6 AM 07/18/17 06:00 Intake Total 120 ml Balance 120 ml WARNER VAZQUEZ MD Jul 17, 2017 11:48
[2017-07-17 14:00] VITALS: BP 124/64
--- NOTE | 2017-07-17 14:58 | ECHO ---
DATE OF PROCEDURE: 07/17/2017 REFERRING PHYSICIAN: Dr. Tra Peña. INDICATION: Dyspnea, hypoxia. HEIGHT: 68 inches. WEIGHT: 205 pounds. 2D MEASUREMENTS: Aortic root - 3.4 cm. Proximal ascending aorta - 3.8 cm Left atrium - 3.7 cm Ventricular septum - 1.14 cm Posterior wall - 1.12 cm Left ventricle diastole - 4.2 cm Left ventricle systole - 2.6 cm LVOT - 2.2 cm Inferior vena cava - 2.2 cm (more than 50% respiratory variation). DOPPLER MEASUREMENTS: Aortic valve velocity - 141 cm/s LVOT velocity - 126 cm/s LVOT VTI - 27.5 cm Mitral E velocity - 89.8 cm/s Mitral A velocity - 119 cm/s Mitral deceleration time - 333 ms Very mild tricuspid regurgitation. Estimated right ventricle systolic pressure - 40 mmHg. Estimated right atrial pressure 10 mmHg Pulmonary venous systolic pressure 41 mmHg by pulmonary acceleration time method. MITRAL ANNULAR TISSUE DOPPLER: E prime septal 6.9 cm/s DESCRIPTION: The rhythm was sinus. This is a moderate technically difficulty echocardiogram. No pericardial effusion. This is a 2D, M-mode, color flow Doppler and pulsed wave Doppler examination and included mitral annular tissue Doppler. CONCLUSIONS: 1. Normal left ventricle and internal dimensions and wall thickness. Normal regional LV wall motion and wall thickening. Normal LV systolic function. LVEF 70% by visual estimate. Grade 1 LV diastolic dysfunction (impaired relaxation filling pattern). 2. Suggestive of moderate elevation of pulmonary artery systolic pressure and estimated right ventricle systolic pressure. 3. Mild dilatation of the aortic root at the level of the proximal ascending aorta. 4. Mild aortic valve sclerosis.
[2017-07-17] MEDS ORDERED: WARFARIN SOD 7.5 MG TAB PO ONE (17:00)
[2017-07-17] MEDS: ATORVASTATIN 10 MG TAB PO SCH (21:58)
[2017-07-17 22:00] VITALS: BP 106/57
[2017-07-17] MEDS: LOSARTAN 50 MG TAB PO SCH (22:00)
[2017-07-18 06:00] VITALS: BP 130/58
[2017-07-18 06:59] LABS: MEAN CORPUSCULAR HEMOGLOBIN 32.9 pg (27.0-33.0); MEAN CORPUSCULAR HGB CONC 35.2 g/dl (32.0-36.5); MEAN CORPUSCULAR VOLUME 93.6 fl (80.0-96.0); PLATELET COUNT, AUTOMATED 291 10^3/uL (150-450); RED CELL DISTRIBUTION WIDTH 13.3 % (11.5-14.5); WHITE BLOOD COUNT 9.6 10^3/uL (4.0-10.0)
[2017-07-18 07:12] LABS: INR 2.34
[2017-07-18 07:26] LABS: ANION GAP 9 MEQ/L (8-16); BLOOD UREA NITROGEN 19 MG/DL (7-18); CALCIUM LEVEL 7.8 MG/DL (8.8-10.2); CARBON DIOXIDE LEVEL 29 MEQ/L (21-32); CHLORIDE LEVEL 94 MEQ/L (98-107); CREATININE FOR GFR 0.98 MG/DL (0.70-1.30); GLOMERULAR FILTRATION RATE > 60.0 (>35); GLUCOSE, FASTING 119 MG/DL (83-110); MAGNESIUM LEVEL 2.3 MG/DL (1.8-2.4); SODIUM LEVEL 132 MEQ/L (136-145)
[2017-07-18] MEDS ORDERED: ACETAMINOPHEN 500 MG TAB PO PRN (07:45)
[2017-07-18] MEDS ORDERED: TAPENTADOL 50 MG TABLET (NUCYNTA) PO PRN (07:45)
[2017-07-18] MEDS ORDERED: NS 1,000 ML IV SCH (08:00)
[2017-07-18] MEDS ORDERED: TYLE325T5 PO (08:39)
[2017-07-18] MEDS ORDERED: NUCY50TA6 PO (08:39)
[2017-07-18] MEDS ORDERED: ISOVUE-370 76% 100ML VIAL (Q9967) As Ordered ONE (09:14)
[2017-07-18 09:15] VITALS: BP 130/58
[2017-07-18] MEDS: buPROPion **XL** TABLET 150MG (WELLBUTRIN XL) PO SCH (09:15)
[2017-07-18] MEDS: OMEPRAZOLE 20 MG CAP PO SCH (09:15)
[2017-07-18] MEDS: TAMSULOSIN 0.4 MG CAP PO SCH (09:15)
--- NOTE | 2017-07-18 11:58 | REP ---
CT abdomen and pelvis: With IV but without oral contrast. History: Right lower quadrant abdominal pain. CT contrast dose: 100 ml of Isovue [address] findings: Preliminary digital prestidigitator radiograph demonstrates gaseous and fluid distension of the cecum and transverse colon. There are multiple air-filled nondilated small bowel loops in the central abdomen. The bowel gas pattern is consistent with enteritis or possibly ileus. Axial CT images demonstrate a small amount of right pleural fluid and atelectasis and/or infiltrate in the right lower lobe of the lung. There are old granulomatous calcifications in the left lung. A hiatal hernia is noted. The liver and the spleen are normal in size, homogeneous in texture. No adrenal lesion is seen. Pancreas is unremarkable. The gallbladder has an intact appearance. The kidneys enhance symmetrically and are morphologically intact. Normal caliber aorta. Fairly heavy vascular calcification is noted. A retroaortic left renal vein is observed. There is a minimal amount of ascitic fluid in the pelvic and right paracolic reflections. The appendix cannot be identified but there is no evidence of focal inflammatory change or mass effect in the right lower quadrant. There is fairly extensive left colonic diverticulosis affecting the sigmoid colon and distal descending colon. No definite evidence of diverticulitis is seen. No obstructive lesion is seen. A Lundy catheter is noted in place. The left hip is replaced. There is an old healed right hip fracture. Degenerative disc and facet changes are noted in the lumbar spine. No bony destructive lesion is appreciated. Impression: 1. Ileus versus enteritis pattern in the bowel gas. 2. Extensive left colonic diverticulosis. No CT evidence of diverticulitis. 3. The appendix is not confidently identified but no pericecal inflammatory change is observed. 4. Minimal ascitic fluid in the pelvic reflections and right paracolic gutter. 5. Old healed right hip fracture and left hip replacement noted. There is subcutaneous edema versus fluid lateral to and superior to the left hip. A hiatal hernia, small amount of right pleural effusion and atelectasis in the right lower lobe of the lung are noted incidentally. There is an old wedge compression deformity at T12. Signed by Timothy Earl MD 07/18/2017 04:10 P
[2017-07-18 14:00] VITALS: BP 120/56
--- NOTE | 2017-07-18 14:06 | IPNPDOC ---
Text Note Date of Service The patient was seen on 07/18/17. NOTE Subjective: Had RLQ abd discomfort with diarrhea this am. Denies CP/ palpitations. Objective: Vitals: (see below) General: No acute distress, laying comfortably in bed. HEENT: Moist mucous membranes. Neck: No JVD or lymphadenopathy Cardiac: RRR, No murmurs Pulm: Clear to auscultation b/l. No wheezing, rhonchi Abd: Mild RLQ tenderness. No rebound/guarding/rigidity./ND + BS Ext: No edema or cyanosis. Left hip pain incision clean/dry. Distal pulses intact. Labs (see below) Images: Assessment/Plan 1. Acute hip fracture status post mechanical fall s/p arthroplasty 07/14 - management per orthopedics 2. History of CAD status post PCIx2. Aspirin held prior to surgery. Will need this restarted once patient completes anticoagulation for DVT prophylaxis. 3. Hypertension- controlled continue home meds 4. Hyperlipidemia- on statin 5. Leukocytosis- likely reactive. No signs of infection. We'll continue to monitor. 6. Obesity 7. Urinary retention - s/p soares - cont flomax. 8. RLQ pain with diarrhea. Had been on stool softener/milk of mag, which have been d/c. CT Abd/pelvis pending. DVT prophy: per ortho VS,Fishbone, I+O VS, Fishbone, I+O Laboratory Tests 07/18/17 06:42 Red Blood Count 3.13 L, Mean Corpuscular Volume 93.6, Mean Corpuscular Hemoglobin 32.9, Mean Corpuscular Hemoglobin Concent 35.2, Red Cell Distribution Width 13.3, Calcium Level 7.8 L Vital Signs Date Time Temp Pulse Resp B/P (MAP) Pulse Ox O2 Delivery O2 Flow Rate FiO2 07/18/17 09:15 91 130/58 07/18/17 08:00 Room Air 07/18/17 06:00 99.1 18 91 07/17/17 22:00 2.0 07/16/17 09:16 93 I&O- Last 24 Hours up to 6 AM 07/19/17 06:00 Intake Total 480 ml Output Total 1400 ml Balance -920 ml WARNER VAZQUEZ MD Jul 18, 2017 14:06
--- NOTE | 2017-07-18 15:19 | DS.PDOC ---
Discharge Summary General Date of Admission Jul 13, 2017 at 17:31 Date of Discharge 07/18/17 Discharge Summary PROCEDURES PERFORMED DURING STAY: Hip arthroplasty ADMITTING/DISCHARGE DIAGNOSES: 1. Hip fracture status post mechanical fall- arthroplasty on 07/14/17 2. History of CAD status post PCI 3. Gastroenteritis 4. History of hypertension 5. History of hyperlipidemia 6. Obesity 7. Urinary retention status post Lundy catheter COMPLICATIONS/CHIEF COMPLAINT: Hip pain HISTORY OF PRESENT ILLNESS/HOSPITAL COURSE: This is a 82-year-old male with past medical history of CAD status post PCI, hypertension, hyperlipidemia, obesity, urinary retention who presents complaining of left hip pain. Patient had a mechanical fall with subsequent left hip pain and notable left hip fracture in the ED. Patient was admitted, medically optimized, and had left hip arthroplasty on . Over the course of hospitalization, patient also had urinary retention, for which a Lundy catheter is placed. Patient was also started on Flomax. Patient will need outpatient urology follow-up. The patient also had right lower quadrant discomfort with associated diarrhea with while on stool softeners and milk of magnesia. The patient had a CAT scan of the abdomen that noted to ileus versus enteritis. Patient's abdominal discomfort has completely resolved and he is tolerating a diet at this point. Patient was on aspirin for his coronary artery disease, and he is to resume this once he has completed his DVT prophylaxis with Coumadin. Patient is hemodynamically stable and will be discharged to PMR. DISCHARGE MEDICATIONS: Please see below. ALLERGIES: Please see below. PHYSICAL EXAMINATION ON DISCHARGE: Vitals: (see below) General: No acute distress, laying comfortably in bed. HEENT: Moist mucous membranes. Neck: No JVD or lymphadenopathy Cardiac: RRR, No murmurs Pulm: Clear to auscultation b/l. No wheezing, rhonchi Abd: NT/ND + BS Ext: No edema or cyanosis. Left hip pain incision clean/dry. Distal pulses intact. LABORATORY DATA: Please see below. PROGNOSIS: Fair ACTIVITY: As tolerated. DIET: Carb consistent DISCHARGE PLAN/DISPOSITION: D/c to PMR. DISCHARGE INSTRUCTIONS: 1. F/u with PCP in 1-2 weeks. F/u with Ortho in 2 weeks. Urology in 1-2 weeks. DISCHARGE CONDITION: Stable. TIME SPENT ON DISCHARGE: Greater than 30 minutes. Vital Signs/I&Os Vital Signs Date Time Temp Pulse Resp B/P (MAP) Pulse Ox O2 Delivery O2 Flow Rate FiO2 07/18/17 14:00 99.9 96 14 120/56 (77) 90 Room Air 07/17/17 22:00 2.0 07/16/17 09:16 93 I&O- Last 24 Hours up to 6 AM 07/19/17 06:00 Intake Total 600 ml Output Total 1400 ml Balance -800 ml Laboratory Data Labs 24H Laboratory Tests 2 07/18/17 06:42: Nucleated Red Blood Cells % (auto) 0.0, Prothrombin Time 26.5H, Prothromb Time International Ratio 2.34, Anion Gap 9, Glomerular Filtration Rate > 60.0, Blood Urea Nitrogen 19H, Creatinine 0.98, Sodium Level 132L, Potassium Level 4.0, Chloride Level 94L, Carbon Dioxide Level 29, Calcium Level 7.8L, Magnesium Level 2.3 CBC/BMP Laboratory Tests 07/18/17 06:42 Red Blood Count 3.13 L, Mean Corpuscular Volume 93.6, Mean Corpuscular Hemoglobin 32.9, Mean Corpuscular Hemoglobin Concent 35.2, Red Cell Distribution Width 13.3, Calcium Level 7.8 L Microbiology Microbiology 07/16/17 Blood Culture - Preliminary, Resulted No Growth after 48 hours. All Specime... 07/15/17 Blood Culture - Preliminary, Resulted No Growth after 72 hours. All specime... Discharge Medications Scheduled (Coq10) 200 Mg Cap, 200 MG PO QPM, (Reported) Atorvastatin Calcium (Atorvastatin Calcium) 10 Mg Tab, 10 MG PO QPM, (Reported) Bupropion Hcl (Bupropion HCl Xl) 150 Mg Tab, 150 MG PO DAILY, (Reported) Diltiazem HCl (Cartia Xt) 240 Mg Cap, 240 MG PO DAILY, (Reported) Losartan Potassium (Losartan Potassium) 100 Mg Tab, 100 MG PO QPM, (Reported) Omeprazole (Omeprazole) 20 Mg Cap, 20 MG PO BID, (Reported) Tamsulosin Hydrochloride (Flomax) 0.4 Mg Cap, 0.4 MG PO QPM, (Reported) Scheduled PRN (Nasacort Allergy 24Hr) 55 Mcg/Act Spr, 2 SPRAYS NA DAILY PRN for CONGESTION, ( Reported) Acetaminophen (Tylenol) 325 Mg Tab, 1,000 MG PO Q6 PRN for Q8H Acetaminophen/Hydrocodone (Dongola 5-325 mg) 1 Tab Tab, 1 TAB PO Q4H PRN for pain, (Reported) Albuterol Sulfate (Ventolin Hfa) 108 Mcg/Act Aer, 2 PUFF INH Q4H PRN for SHORTNESS OF BREATH, (Reported) Nitroglycerin (Nitroglycerin) 0.4 Mg Sub, 0.4 MG SL ASDIRECTED PRN for ang, ( Reported) Tapentadol Hydrochloride (Nucynta) 50 Mg Tab, 50 MG PO Q4H PRN PRN for PAIN Allergies Coded Allergies: Penicillins (Verified Allergy, Unknown, 11/04/12) Penicillins Cross Reactors (Verified Allergy, Unknown, 11/04/12) WARNER VAZQUEZ MD Jul 18, 2017 15:19
--- NOTE | 2017-07-22 17:02 | RO ---
DATE OF PROCEDURE: 07/14/2017 PREOPERATIVE DIAGNOSIS: Left hip femoral neck fracture. POSTOPERATIVE DIAGNOSIS: Left hip femoral neck fracture. PROCEDURE PERFORMED: Left hip hemiarthroplasty, cemented. SURGEON: Tera Garza MD PRINT LINE TAILER: ANESTHESIA: Spinal. ESTIMATED BLOOD LOSS: 200 mL REPLACED: Crystalloid COMPLICATIONS: None. INDICATIONS FOR SURGERY: 82-year-old gentleman fell, fractured hip, elects for operative intervention. Consent reviewed in detail including virgilio discussion with the pathology involved, the procedure proposed, alternatives including doing nothing. Risks including but not limited to pain, failure, infection, bleeding, blood loss, incomplete relief, need for more surgery, limp and other issues. The patient agrees to proceed with operative course. DESCRIPTION OF PROCEDURE: Identified in the holding area, site, side verified, brought to the operating room. Once spinal anesthesia was administered, he was positioned in the lateral decubitus position for exposure of the left hip or Hardinge approach, modified Hardinge approach. Next, the line of the incision was based on palpation of the greater trochanter, outlined with a marking pen, infiltrated with 0.25% Marcaine with epinephrine. Incision was made with a #10 blade, developed down through skin and subcuticular tissues to the lateral fascia. Lateral fascia was divided parallel to its fibers allowing exposure of the abductor mechanism. Split was created at the 2-o'clock position and the abductor mechanism dissection continued down the femoral neck. The neurosurgical nurse practitioner helped to hold the retractors. I split the capsule and minimus tissues using the Bovie cautery and continued the dissection to the greater trochanter. A cuff of tissue left on the greater trochanter for later repair. The abductor mechanism was released anteriorly, tag suture was utilized to misbah it. Next, the dissection continued inferiorly splitting the vastus lateralis and releasing capsular tissues from the anterior aspect of the hip. Next, I was able to then access the femoral head which was appreciated be seated in the acetabulum. I utilized a corkscrew to obtain the femoral head, which was then removed using traction. Next, I explored the acetabulum. No debris appreciated in the acetabulum. Round ligament of the acetabulum was removed using the monopolar cautery. Next, femoral side was prepared. Canal opening reamer followed by canal finding reamer followed by lateralizing reamer were utilized followed by reaming through a size 3-4. Next, once this was accomplished, I did trial off the appropriate broach. We measured the femoral head for the appropriate head size. Trial fit appropriately at a -3 neck length. Next, cement restricter was placed distally. Canal was irrigated using pulse lavage, using the brush and I was packed using epi soaked vag pack. Cement was prepared on the back table. Once the cement was the appropriate consistency, the cement was installed into the canal and the non trial hip prosthesis was then installed and the cement mantle held in place until the cement hardened. I cleared excess cement using curettes. We had installed the cement using pressurized technique. Next, once the cement had hardened, we placed a -3 neck length and femoral head, which was tamped into place with nylon impactor. Pulse lavage was utilized. We also used Exparel local anesthetic, which was injected circumferentially around the wound. Next, once the hip was reduced, the abductor mechanism was repaired including the capsular/minimus tissues and repair of the anterior abductor to cuff tissue on greater trochanter. Vastus lateralis repaired. Lateral fascia repair with interrupted stitch and running Stratafix. Next, deep dermis repaired with interrupted stitch followed by Prineo dressing. Next, the patient was able to be moved to the supine position, held between the knees, moved to the recovery room in good condition. For further details please refer to the medical record. Please note that cement used for this procedure was tobramycin methacrylate cement. Components used for this procedure was a [employer] [place] cemented hemiarthroplasty component.
[2017-07-23] MEDS ORDERED: COUM2.5T17 PO (07:22)
== END 2017-07-18 16:45 | DRG 470 ==
LOC: M ED 15:09 → M ED INP 17:31 → M MS5PR 20:09
PROVIDERS: ADMIT General Practice; ATTEND Internal Medicine
PROC: 0QU50JZ Supplement Left Acetabulum with Synthetic Substitute, Open Approach (ICD-10-PCS; 2017-07-14)
PROC: 0SRB0J9 Replacement of Left Hip Joint with Synthetic Substitute, Cemented, Open Approach (ICD-10-PCS; principal; 2017-07-14 08:25)
DX: S72.002A Fracture of unspecified part of neck of left femur, initial encounter for closed fracture (principal); I45.2 Bifascicular block; I25.10 Atherosclerotic heart disease of native coronary artery without angina pectoris; I10 Essential (primary) hypertension; E78.00 Pure hypercholesterolemia, unspecified; E66.9 Obesity, unspecified; M19.90 Unspecified osteoarthritis, unspecified site; Z95.2 Presence of prosthetic heart valve; Z87.891 Personal history of nicotine dependence; Z88.0 Allergy status to penicillin; Z88.8 Allergy status to other drugs, medicaments and biological substances; Z79.899 Other long term (current) drug therapy; Z79.82 Long term (current) use of aspirin; E78.5 Hyperlipidemia, unspecified; I45.10 Unspecified right bundle-branch block; D72.829 Elevated white blood cell count, unspecified; R33.9 Retention of urine, unspecified

== ENCOUNTER 2017-07-18 17:10 | Inpatient (IN) | payer MEDICARE ==
[~2017-07-18 17:10] MED LIST: BISACODYL 5 MG TAB PO
[2017-07-18] MEDS ORDERED: NITROGLYCERIN 0.4 MG SUBL TABLET SL (17:15)
[2017-07-18] MEDS: SODIUM CHLORIDE 0.9% 1000 ML IV (18:19)
[2017-07-18] MEDS: TAMSULOSIN 0.4 MG CAP PO (21:58)
[2017-07-18] MEDS: ACETAMINOPHEN TAB 650MG DOSE (2X325MG) PO (21:58)
[2017-07-18] MEDS: ATORVASTATIN 10 MG TAB PO (21:58)
[2017-07-18] MEDS: LOSARTAN 50 MG TAB PO (21:58)
[2017-07-18] MEDS: OMEPRAZOLE 20 MG CAP PO (21:58)
[2017-07-19] MEDS: ACETAMINOPHEN TAB 650MG DOSE (2X325MG) PO ×2 (05:47→13:00)
[2017-07-19 07:23] LABS: BASO % 0.5 % (0.0-1.0); EOS # 0.3 10^3/uL (0.0-0.50); EOS % 3.6 % (0.0-3.0); IMMATURE GRANULOCYTE # 0.1 10^3/uL (0-0); IMMATURE GRANULOCYTE % 0.8 % (0-0); LYMPH # 0.9 10^3/uL (1.5-4.5); LYMPH % 11.3 % (24.0-44.0); MEAN CORPUSCULAR HEMOGLOBIN 32.3 pg (27.0-33.0); MEAN CORPUSCULAR HGB CONC 34.7 g/dl (32.0-36.5); MEAN CORPUSCULAR VOLUME 93.2 fl (80.0-96.0); MONO # 1.5 10^3/uL (0.0-0.8); MONO % 18.2 % (0.0-5.0); NEUTROPHILS # 5.5 10^3/uL (1.8-7.7); NEUTROPHILS % 65.6 % (36.0-66.0); PLATELET COUNT, AUTOMATED 344 10^3/uL (150-450); RED CELL DISTRIBUTION WIDTH 13.5 % (11.5-14.5); WHITE BLOOD COUNT 8.3 10^3/uL (4.0-10.0)
[2017-07-19 07:35] LABS: INR 2.08
[2017-07-19 07:51] LABS: ALBUMIN 2.4 GM/DL (3.2-5.2); ALBUMIN/GLOBULIN RATIO 0.62 (1.00-1.93); ALKALINE PHOSPHATASE 82 U/L (45-117); ALT/SGPT 37 U/L (12-78); ANION GAP 8 MEQ/L (8-16); AST/SGOT 45 U/L (7-37); BILIRUBIN,TOTAL 0.7 MG/DL (0.2-1.0); BLOOD UREA NITROGEN 14 MG/DL (7-18); CALCIUM LEVEL 8.5 MG/DL (8.8-10.2); CARBON DIOXIDE LEVEL 29 MEQ/L (21-32); CHLORIDE LEVEL 101 MEQ/L (98-107); CREATININE FOR GFR 0.89 MG/DL (0.70-1.30); GLOMERULAR FILTRATION RATE > 60.0 (>35); GLUCOSE, FASTING 118 MG/DL (83-110); SODIUM LEVEL 138 MEQ/L (136-145); TOTAL PROTEIN 6.3 GM/DL (6.4-8.2)
[2017-07-19] MEDS: OMEPRAZOLE 20 MG CAP PO ×2 (08:41→21:12)
[2017-07-19] MEDS: buPROPion **XL** TABLET 150MG (WELLBUTRIN XL) PO (08:41)
[2017-07-19] MEDS: TAMSULOSIN 0.4 MG CAP PO ×2 (08:41→21:12)
[2017-07-19] MEDS: TAPENTADOL 50 MG TABLET (NUCYNTA) PO ×2 (15:21→21:17)
[2017-07-19] MEDS: ALBUTEROL 90 MCG/ACT 8GM HFA INHALER INH (16:03)
[2017-07-19] MEDS: WARFARIN 1.25 MG PER 1/2 TABLET PO (17:57)
[2017-07-19] MEDS: ATORVASTATIN 10 MG TAB PO (21:12)
[2017-07-19] MEDS: LOSARTAN 50 MG TAB PO (21:12)
[2017-07-20 07:26] LABS: INR 1.92; MEAN CORPUSCULAR HEMOGLOBIN 32.3 pg (27.0-33.0); MEAN CORPUSCULAR HGB CONC 34.4 g/dl (32.0-36.5); MEAN CORPUSCULAR VOLUME 93.8 fl (80.0-96.0); PLATELET COUNT, AUTOMATED 424 10^3/uL (150-450); RED CELL DISTRIBUTION WIDTH 13.6 % (11.5-14.5); WHITE BLOOD COUNT 9.1 10^3/uL (4.0-10.0)
[2017-07-20 07:36] LABS: ALBUMIN 2.6 GM/DL (3.2-5.2); ALBUMIN/GLOBULIN RATIO 0.65 (1.00-1.93); ALKALINE PHOSPHATASE 86 U/L (45-117); ALT/SGPT 63 U/L (12-78); ANION GAP 8 MEQ/L (8-16); AST/SGOT 64 U/L (7-37); BILIRUBIN,TOTAL 0.7 MG/DL (0.2-1.0); BLOOD UREA NITROGEN 13 MG/DL (7-18); CALCIUM LEVEL 8.3 MG/DL (8.8-10.2); CARBON DIOXIDE LEVEL 28 MEQ/L (21-32); CHLORIDE LEVEL 100 MEQ/L (98-107); CREATININE FOR GFR 0.92 MG/DL (0.70-1.30); FERRITIN 438 NG/ML (26-388); GLOMERULAR FILTRATION RATE > 60.0 (>35); GLUCOSE, FASTING 105 MG/DL (83-110); PERCENT SATURATION 15.3 % (19.7-50.0); POTASSIUM SERUM 3.8 MEQ/L (3.5-5.1); SODIUM LEVEL 136 MEQ/L (136-145); TOTAL IRON BINDING CAPACITY 183 UG/DL (250-450); TOTAL PROTEIN 6.6 GM/DL (6.4-8.2)
[2017-07-20] MEDS: buPROPion **XL** TABLET 150MG (WELLBUTRIN XL) PO (08:12)
[2017-07-20] MEDS: TAMSULOSIN 0.4 MG CAP PO ×2 (08:12→20:33)
[2017-07-20] MEDS: OMEPRAZOLE 20 MG CAP PO ×2 (08:12→20:33)
[2017-07-20] MEDS: TAPENTADOL 50 MG TABLET (NUCYNTA) PO ×3 (08:30→20:34)
[2017-07-20] MEDS: ALBUTEROL 90 MCG/ACT 8GM HFA INHALER INH (08:45)
[2017-07-20] MEDS: ACETAMINOPHEN TAB 650MG DOSE (2X325MG) PO (11:59)
[2017-07-20 12:48] LABS: VITAMIN B12 LEVEL 1042 PG/ML (247-911)
[2017-07-20] MEDS: GUM PO ×2 (15:23→18:03)
[2017-07-20] MEDS: NICOTINE 4 MG PO ×2 (15:23→18:03)
[2017-07-20] MEDS: WARFARIN SOD 3 MG TAB PO (16:55)
[2017-07-20] MEDS: ATORVASTATIN 10 MG TAB PO (20:33)
[2017-07-20] MEDS: LOSARTAN 50 MG TAB PO (20:33)
[2017-07-21] MEDS: TAPENTADOL 50 MG TABLET (NUCYNTA) PO ×2 (07:38→11:58)
[2017-07-21] MEDS: TAMSULOSIN 0.4 MG CAP PO ×2 (07:38→20:40)
[2017-07-21] MEDS: buPROPion **XL** TABLET 150MG (WELLBUTRIN XL) PO (07:38)
[2017-07-21] MEDS: OMEPRAZOLE 20 MG CAP PO ×2 (07:38→20:40)
[2017-07-21] MEDS: GUM PO ×3 (07:39→18:15)
[2017-07-21] MEDS: NICOTINE 4 MG PO ×3 (07:39→18:15)
[2017-07-21 07:48] LABS: INR 1.89
[2017-07-21] MEDS: WARFARIN SOD 2 MG TAB PO (16:56)
[2017-07-21] MEDS: ATORVASTATIN 10 MG TAB PO (20:40)
[2017-07-21] MEDS: LOSARTAN 50 MG TAB PO (20:47)
[2017-07-21] MEDS: ACETAMINOPHEN TAB 650MG DOSE (2X325MG) PO (20:47)
[2017-07-22 08:03] LABS: INR 1.88
[2017-07-22] MEDS: OMEPRAZOLE 20 MG CAP PO ×2 (08:22→20:40)
[2017-07-22] MEDS: ACETAMINOPHEN TAB 650MG DOSE (2X325MG) PO ×3 (08:22→20:40)
[2017-07-22] MEDS: TAMSULOSIN 0.4 MG CAP PO ×2 (08:22→20:40)
[2017-07-22] MEDS: buPROPion **XL** TABLET 150MG (WELLBUTRIN XL) PO (08:22)
[2017-07-22] MEDS: NICOTINE 4 MG PO ×5 (08:23→20:41)
[2017-07-22] MEDS: GUM PO ×5 (08:23→20:41)
[2017-07-22] MEDS: LACTOBACILLUS ACIDOPHILUS CAP (BACID) PO ×2 (12:16→20:40)
[2017-07-22] MEDS: WARFARIN SOD 4 MG TAB PO (18:24)
[2017-07-22] MEDS: ATORVASTATIN 10 MG TAB PO (20:40)
[2017-07-22] MEDS: LOSARTAN 50 MG TAB PO (20:40)
[2017-07-23] MEDS: TAPENTADOL 50 MG TABLET (NUCYNTA) PO ×2 (00:10→08:54)
[2017-07-23] MEDS: NICOTINE 4 MG PO ×2 (00:10→09:10)
[2017-07-23] MEDS: GUM PO ×2 (00:10→09:10)
[2017-07-23] MEDS: ACETAMINOPHEN TAB 650MG DOSE (2X325MG) PO ×2 (06:17→12:55)
[2017-07-23 07:49] LABS: INR 1.71
[2017-07-23] MEDS: OMEPRAZOLE 20 MG CAP PO (08:54)
[2017-07-23] MEDS: LACTOBACILLUS ACIDOPHILUS CAP (BACID) PO (08:54)
[2017-07-23] MEDS: buPROPion **XL** TABLET 150MG (WELLBUTRIN XL) PO (08:54)
[2017-07-23] MEDS: TAMSULOSIN 0.4 MG CAP PO (08:54)
[2017-07-23] MEDS ORDERED: WARFARIN SOD 2.5 MG TAB PO (17:00)
== END 2017-07-23 14:40 | disposition home health service (06) | DRG 561 ==
LOC: M PM&R 17:10
DX: Z47.1 Aftercare following joint replacement surgery (principal); K59.00 Constipation, unspecified; S72.042D Displaced fracture of base of neck of left femur, subsequent encounter for closed fracture with routine healing; I50.9 Heart failure, unspecified; I11.0 Hypertensive heart disease with heart failure; I25.10 Atherosclerotic heart disease of native coronary artery without angina pectoris; D64.9 Anemia, unspecified; E78.00 Pure hypercholesterolemia, unspecified; K21.9 Gastro-esophageal reflux disease without esophagitis; R33.9 Retention of urine, unspecified; I73.00 Raynaud's syndrome without gangrene; E78.5 Hyperlipidemia, unspecified; E66.9 Obesity, unspecified; K22.8 Other specified diseases of esophagus; M15.9 Polyosteoarthritis, unspecified; Z88.0 Allergy status to penicillin; Z88.8 Allergy status to other drugs, medicaments and biological substances; Z79.899 Other long term (current) drug therapy; Z87.891 Personal history of nicotine dependence; Z95.5 Presence of coronary angioplasty implant and graft; W10.8XXD Fall (on) (from) other stairs and steps, subsequent encounter; Y92.008 Other place in unspecified non-institutional (private) residence as the place of occurrence of the external cause; Y93.01 Activity, walking, marching and hiking; Y99.9 Unspecified external cause status; Z96.0 Presence of urogenital implants

== ENCOUNTER 2017-08-16 21:11 | Inpatient (IN) | payer MEDICARE ==
[2017-08-16] MEDS: NS 500 ML IV (21:30)
[2017-08-16 21:35] LABS: BASO # 0.1 10^3/uL (0.0-0.2); EOS # 0.1 10^3/uL (0.0-0.50); HEMATOCRIT 33.7 % (42.0-52.0); HEMOGLOBIN 11.5 g/dl (14.0-18.0); IMMATURE GRANULOCYTE % 0.5 % (0-0); LYMPH # 0.4 10^3/uL (1.5-4.5); LYMPH % 7.2 % (24.0-44.0); MEAN CORPUSCULAR HEMOGLOBIN 32.1 pg (27.0-33.0); MEAN CORPUSCULAR HGB CONC 34.1 g/dl (32.0-36.5); MEAN CORPUSCULAR VOLUME 94.1 fl (80.0-96.0); MONO # 0.8 10^3/uL (0.0-0.8); MONO % 13.5 % (0.0-5.0); NEUTROPHILS # 4.5 10^3/uL (1.8-7.7); NEUTROPHILS % 75.8 % (36.0-66.0); PLATELET COUNT, AUTOMATED 237 10^3/uL (150-450); RED BLOOD COUNT 3.58 10^6/uL (4.30-6.10); RED CELL DISTRIBUTION WIDTH 14.5 % (11.5-14.5); WHITE BLOOD COUNT 5.9 10^3/uL (4.0-10.0)
[2017-08-16 21:44] LABS: INR 1.47; PROTHROMBIN TIME 18.2 SECONDS (12.4-14.5)
[2017-08-16 21:45] LABS: PARTIAL THROMBOPLASTIN TIME 44.1 SECONDS (26.8-37.9)
[2017-08-16 21:52] LABS: BEDSIDE GLUCOSE 129 MG/DL (83-110)
[2017-08-16 22:01] LABS: ANION GAP 4 MEQ/L (8-16); BLOOD UREA NITROGEN 14 MG/DL (7-18); C REACTIVE PROTEIN QUANTITATIV 6.11 MG/DL (0.00-0.30); CALCIUM LEVEL 8.5 MG/DL (8.8-10.2); CARBON DIOXIDE LEVEL 27 MEQ/L (21-32); CHLORIDE LEVEL 101 MEQ/L (98-107); CPK CREATINE PHOSPHOKINASE 68 U/L (39-308); CREATININE FOR GFR 1.14 MG/DL (0.70-1.30); GLOMERULAR FILTRATION RATE > 60.0 (>35); GLUCOSE, FASTING 166 MG/DL (83-110); MB/CK RELATIVE INDEX 1.47 (< OR =4); SODIUM LEVEL 132 MEQ/L (136-145); TROPONIN I < 0.02 NG/ML (< 0.10)
[2017-08-16] MEDS: ASPIRIN 81 MG CHEW TABLET PO (22:30)
[2017-08-16 22:48] LABS: KETONE, URINE AUTO RFX TRACE mg/dL (NEGATIVE); LEUKOCYTE ESTERASE UR AUTO RFX NEGATIVE (NEGATIVE); MUCUS, URINE RFX SMALL (NEGATIVE); NITRITE, URINE AUTO RFX NEGATIVE (NEGATIVE); RBC, URINE AUTO RFX 6 /HPF (0-3); SPECIFIC GRAVITY UR AUTO RFX 1.029 (1.002-1.035); SQUAM EPITHELIAL CELL UR AURFX 2 /HPF (0-6); WBC, URINE AUTO RFX 2 /HPF (0-3)
[2017-08-17 00:40] LABS: CPK CREATINE PHOSPHOKINASE 64 U/L (39-308); TROPONIN I < 0.02 NG/ML (< 0.10)
[2017-08-17 00:41] LABS: MB/CK RELATIVE INDEX 1.56 (< OR =4)
[2017-08-17] MEDS ORDERED: ALBUTEROL 90 MCG/ACT 8GM HFA INHALER INH (01:00)
[2017-08-17] MEDS: LOSARTAN 50 MG TAB PO ×2 (01:11→18:19)
[2017-08-17] MEDS: NORCO, ANEXSIA 5/325MG TABLET (HYDROcodone/ACETAMINOPHEN) PO ×3 (01:12→18:27)
[2017-08-17] MEDS: ATORVASTATIN 10 MG TAB PO ×2 (01:20→18:17)
[2017-08-17] MEDS: OMEPRAZOLE 20 MG CAP PO ×3 (01:20→20:47)
[2017-08-17] MEDS: TAMSULOSIN 0.4 MG CAP PO ×2 (01:20→18:19)
[2017-08-17] MEDS: ASCORBIC ACID 500 MG TAB PO ×2 (01:21→18:17)
[2017-08-17 07:25] LABS: HEMATOCRIT 34.4 % (42.0-52.0); HEMOGLOBIN 11.7 g/dl (14.0-18.0); MEAN CORPUSCULAR HEMOGLOBIN 31.8 pg (27.0-33.0); MEAN CORPUSCULAR VOLUME 93.5 fl (80.0-96.0); PLATELET COUNT, AUTOMATED 245 10^3/uL (150-450); RED BLOOD COUNT 3.68 10^6/uL (4.30-6.10); RED CELL DISTRIBUTION WIDTH 14.6 % (11.5-14.5)
[2017-08-17 08:00] LABS: ANION GAP 7 MEQ/L (8-16); BLOOD UREA NITROGEN 11 MG/DL (7-18); CALCIUM LEVEL 8.2 MG/DL (8.8-10.2); CARBON DIOXIDE LEVEL 27 MEQ/L (21-32); CHLORIDE LEVEL 103 MEQ/L (98-107); CPK CREATINE PHOSPHOKINASE 82 U/L (39-308); CREATININE FOR GFR 0.95 MG/DL (0.70-1.30); GLOMERULAR FILTRATION RATE > 60.0 (>35); GLUCOSE, FASTING 98 MG/DL (83-110); SODIUM LEVEL 137 MEQ/L (136-145); TROPONIN I < 0.02 NG/ML (< 0.10)
[2017-08-17 08:01] LABS: MB/CK RELATIVE INDEX 1.21 (< OR =4)
[2017-08-17] MEDS: ASPIRIN 81 MG CHEW TABLET PO (10:34)
[2017-08-17] MEDS: buPROPion **XL** TABLET 150MG (WELLBUTRIN XL) PO (10:37)
[2017-08-17] MEDS: OMEGA-3 1050MG CAPSULE PO (10:37)
[2017-08-17] MEDS: MULTIVITAMINS/MINERALS THERAP 1 TAB PO (10:37)
[2017-08-17] MEDS: CALCIUM/VITAMIN D 500 MG TAB PO (10:40)
[2017-08-17] MEDS ORDERED: NORCO, ANEXSIA 5/325MG TABLET (HYDROcodone/ACETAMINOPHEN) As Ordered (10:42)
[2017-08-17] MEDS: OSELTAMIVIR PHOSPHATE 75 MG CAP (TAMIFLU) PO ×2 (17:48→20:48)
[2017-08-18] MEDS: NORCO, ANEXSIA 5/325MG TABLET (HYDROcodone/ACETAMINOPHEN) PO ×2 (02:18→09:52)
[2017-08-18 06:17] LABS: MEAN CORPUSCULAR HEMOGLOBIN 32.2 pg (27.0-33.0); MEAN CORPUSCULAR HGB CONC 34.3 g/dl (32.0-36.5); MEAN CORPUSCULAR VOLUME 93.8 fl (80.0-96.0); PLATELET COUNT, AUTOMATED 222 10^3/uL (150-450); RED BLOOD COUNT 3.73 10^6/uL (4.30-6.10); RED CELL DISTRIBUTION WIDTH 14.6 % (11.5-14.5); WHITE BLOOD COUNT 4.1 10^3/uL (4.0-10.0)
[2017-08-18 06:27] LABS: INR 1.12; PROTHROMBIN TIME 14.6 SECONDS (12.4-14.5)
[2017-08-18 06:37] LABS: ANION GAP 5 MEQ/L (8-16); BLOOD UREA NITROGEN 12 MG/DL (7-18); CALCIUM LEVEL 8.1 MG/DL (8.8-10.2); CARBON DIOXIDE LEVEL 29 MEQ/L (21-32); CHLORIDE LEVEL 103 MEQ/L (98-107); CREATININE FOR GFR 0.85 MG/DL (0.70-1.30); GLOMERULAR FILTRATION RATE > 60.0 (>35); GLUCOSE, FASTING 89 MG/DL (83-110); POTASSIUM SERUM 3.8 MEQ/L (3.5-5.1); SODIUM LEVEL 137 MEQ/L (136-145)
[2017-08-18] MEDS: OMEGA-3 1050MG CAPSULE PO (09:48)
[2017-08-18] MEDS: OSELTAMIVIR PHOSPHATE 75 MG CAP (TAMIFLU) PO (09:48)
[2017-08-18] MEDS: OMEPRAZOLE 20 MG CAP PO (09:48)
[2017-08-18] MEDS: buPROPion **XL** TABLET 150MG (WELLBUTRIN XL) PO (09:48)
[2017-08-18] MEDS: MULTIVITAMINS/MINERALS THERAP 1 TAB PO (09:48)
[2017-08-18] MEDS: CALCIUM/VITAMIN D 500 MG TAB PO (09:48)
[2017-08-18] MEDS: ASPIRIN 81 MG CHEW TABLET PO (09:48)
== END 2017-08-18 12:12 | disposition home or self-care (01) | DRG 866 ==
LOC: M ED 21:11 → M ED INP 23:13 → M MSPAV 08-17 17:58
DX: J10.81 Influenza due to other identified influenza virus with encephalopathy (principal); I10 Essential (primary) hypertension; I73.00 Raynaud's syndrome without gangrene; K21.9 Gastro-esophageal reflux disease without esophagitis; J10.1 Influenza due to other identified influenza virus with other respiratory manifestations; E78.00 Pure hypercholesterolemia, unspecified; I25.10 Atherosclerotic heart disease of native coronary artery without angina pectoris; Z95.9 Presence of cardiac and vascular implant and graft, unspecified; Z87.891 Personal history of nicotine dependence; Z79.01 Long term (current) use of anticoagulants; Z88.0 Allergy status to penicillin

== ENCOUNTER → 2017-12-06 | Outpatient (REF) | payer MEDICARE ==
[2017-12-06 09:59] LABS: HEMATOCRIT 43.2 % (42.0-52.0); HEMOGLOBIN 14.6 g/dl (13.5-17.5); MEAN CORPUSCULAR HEMOGLOBIN 31.9 pg (27.0-33.0); MEAN CORPUSCULAR HGB CONC 33.8 g/dl (32.0-36.5); MEAN CORPUSCULAR VOLUME 94.5 fl (80.0-96.0); PLATELET COUNT, AUTOMATED 349 10^3/uL (150-450); RED BLOOD COUNT 4.57 10^6/uL (4.30-6.10); RED CELL DISTRIBUTION WIDTH 15.2 % (11.5-14.5)
[2017-12-06 10:15] LABS: ALBUMIN 4.2 GM/DL (3.2-5.2); ALKALINE PHOSPHATASE 76 U/L (45-117); ALT/SGPT 19 U/L (12-78); ANION GAP 7 MEQ/L (8-16); AST/SGOT 13 U/L (7-37); BILIRUBIN,TOTAL 0.5 MG/DL (0.2-1.0); BLOOD UREA NITROGEN 11 MG/DL (7-18); CALCIUM LEVEL 9.1 MG/DL (8.8-10.2); CARBON DIOXIDE LEVEL 28 MEQ/L (21-32); CHLORIDE LEVEL 106 MEQ/L (98-107); CHOLESTEROL LEVEL 160 MG/DL (<200); CHOLESTEROL RISK RATIO 2.162 (<5); CREATININE FOR GFR 1.08 MG/DL (0.70-1.30); GLOMERULAR FILTRATION RATE > 60.0 (>35); GLUCOSE, FASTING 102 MG/DL (70-100); HDL CHOLESTEROL 74 MG/DL (>40); MAGNESIUM LEVEL 2.4 MG/DL (1.8-2.4); NON-HDL-C 86 MG/DL; POTASSIUM SERUM 4.6 MEQ/L (3.5-5.1); SODIUM LEVEL 141 MEQ/L (136-145); TOTAL PROTEIN 7.2 GM/DL (6.4-8.2); TRIGLYCERIDES LEVEL 60 MG/DL (<150)
[2017-12-06 14:24] LABS: PSA SCREENING 0.51 NG/ML (< 4.0)
== END ==
LOC: M SFHCPLAZ 08:09
DX: R53.82 Chronic fatigue, unspecified (principal); I10 Essential (primary) hypertension; E78.00 Pure hypercholesterolemia, unspecified; Z12.5 Encounter for screening for malignant neoplasm of prostate
CPT/HCPCS: 83735

== ENCOUNTER → 2018-06-13 | Outpatient (REF) | payer MEDICARE ==
[2018-06-13 13:37] LABS: ALBUMIN 4.1 GM/DL (3.2-5.2); ALBUMIN/GLOBULIN RATIO 1.52 (1.00-1.93); ALKALINE PHOSPHATASE 72 U/L (45-117); ALT/SGPT 23 U/L (12-78); ANION GAP 10 MEQ/L (8-16); AST/SGOT 15 U/L (7-37); BILIRUBIN,TOTAL 0.6 MG/DL (0.2-1.0); BLOOD UREA NITROGEN 18 MG/DL (7-18); CARBON DIOXIDE LEVEL 28 MEQ/L (21-32); CHLORIDE LEVEL 103 MEQ/L (98-107); GLOMERULAR FILTRATION RATE 56.4 (>35); GLUCOSE, FASTING 108 MG/DL (70-100); MAGNESIUM LEVEL 1.9 MG/DL (1.8-2.4); SODIUM LEVEL 141 MEQ/L (136-145); TOTAL PROTEIN 6.8 GM/DL (6.4-8.2)
== END ==
LOC: M SFHCPLAZ 07:52
DX: I10 Essential (primary) hypertension (principal); R53.82 Chronic fatigue, unspecified
CPT/HCPCS: 83735

== ENCOUNTER → 2019-02-14 | Outpatient (CLI) | payer MEDICARE ==
[~2019-02-14] MED LIST changes: +ASPI81TA85 PO; +ATOR1TAB19 PO; -BISACODYL 5 MG TAB PO; +BUPR150T3 PO; +CALC1TAB27 PO; +CART240C3 PO; +COQ1200C2 PO; +COUM2.5T17 PO; +FISH1000 PO; +FLOM0.4C39 PO; +LOSA100T50 PO; +NASA1SPR; +NITR0.4S14 SL; +NORC1TAB7 PO; +NUCY50TA19 PO; +OMEP20CA4 PO; +OSEL75CA2 PO; +TYLE325T5 PO; +TYLE500T78 PO; +VENTAER INH; +VITA10006 PO; +VITMTA PO
[2019-02-14 13:20] LABS: CHOLESTEROL RISK RATIO 2.206 (<5)
== END ==
LOC: M WUC 09:20
PROVIDERS: ATTEND Internal Medicine Cardiovascular Disease
DX: I25.10 Atherosclerotic heart disease of native coronary artery without angina pectoris (principal); I10 Essential (primary) hypertension; E78.00 Pure hypercholesterolemia, unspecified

== ENCOUNTER 2019-03-21 06:58 | Day surgery (SDC) | payer MEDICARE ==
[~2019-03-21] VITALS: Ht 172.7 cm; Wt 90.3 kg
[2019-03-21] MEDS: NS 1,000 ML IV ONE (06:00)
[~2019-03-21 06:58] MED LIST changes: +BAYE325T12 PO; +BONI1TAB PO; +COQ-100C5 PO; +LOSA100T8 PO; +RANI1TAB38 PO; +TIZA4CAP6 PO; +VITA500T PO
--- NOTE | 2019-03-21 09:36 | ROOR ---
Patient Name: Steffen Barron Procedure Date: 03/21/2019 9:20 AM Date of : 1935 Age: 84 Room: [facility] Gender: Male Note Status: Finalized Procedure: Upper GI endoscopy Indications: Heartburn, Chest pain (non cardiac) Providers: Joao Howard MD Referring MD: Timym Sylvester MD Requesting Provider: Medicines: Monitored Anesthesia Care Complications: No immediate complications. Procedure: Pre-Anesthesia Assessment: - The heart rate, respiratory rate, oxygen saturations, blood pressure, adequacy of pulmonary ventilation, and response to care were monitored throughout the procedure. The Endoscope was introduced through the mouth, and advanced to the second part of duodenum. The upper GI endoscopy was accomplished without difficulty. The patient tolerated the procedure well. Findings: The Z-line was regular and was found 40 cm from the incisors. A large hiatal hernia was present. No other significant abnormalities were identified in a careful examination of the stomach. The exam of the duodenum was otherwise normal. Impression: - Z-line regular, 40 cm from the incisors. - Large hiatal hernia. - No specimens collected. - The examination was otherwise normal. Recommendation: - Patient has a contact number available for emergencies. The signs and symptoms of potential delayed complications were discussed with the patient. Return to normal activities tomorrow. Written discharge instructions were provided to the patient. - High fiber diet. - Discharge patient to home. - Follow an antireflux regimen. - Continue present medications. - Return to referring physician. - Do an upper GI series at appointment to be scheduled. - The findings and recommendations were discussed with the patient's family. Joao Howard MD Joao Howard MD 03/21/2019 9:35:41 AM Electronically signed by Joao Howard MD Number of Addenda: 0 Note Initiated On: 03/21/2019 9:20 AM Estimated Blood Loss: Estimated blood loss: none.
--- NOTE | 2019-03-21 09:48 | ROOR ---
Patient Name: Steffen Barron Procedure Date: 03/21/2019 9:21 AM Date of : 1935 Age: 84 Room: [facility] Gender: Male Note Status: Finalized Procedure: Total Colonoscopy to Cecum Indications: Colon cancer screening in patient at increased risk: Colorectal cancer in mother Providers: Joao Howard MD Referring MD: Timmy Sylvester MD Requesting Provider: Medicines: Monitored Anesthesia Care Complications: No immediate complications. Procedure: Pre-Anesthesia Assessment: - The heart rate, respiratory rate, oxygen saturations, blood pressure, adequacy of pulmonary ventilation, and response to care were monitored throughout the procedure. The Colonoscope was introduced through the anus and advanced to the cecum, identified by appendiceal orifice and ileocecal valve. The colonoscopy was performed without difficulty. The patient tolerated the procedure well. The quality of the bowel preparation was good. Findings: The perianal and digital rectal examinations were normal. Non-bleeding internal hemorrhoids were found during retroflexion. The hemorrhoids were small and Grade I (internal hemorrhoids that do not prolapse). Multiple small and large-mouthed diverticula were found in the recto-sigmoid colon, sigmoid colon and descending colon. The exam was otherwise without abnormality on direct and retroflexion views. Impression: - Non-bleeding internal hemorrhoids. - Diverticulosis in the recto-sigmoid colon, in the sigmoid colon and in the descending colon. - The examination was otherwise normal on direct and retroflexion views. - No specimens collected. - The exam was otherwise normal to the cecum. Recommendation: - Patient has a contact number available for emergencies. The signs and symptoms of potential delayed complications were discussed with the patient. Return to normal activities tomorrow. Written discharge instructions were provided to the patient. - High fiber diet. - Discharge patient to home. - Continue present medications. - Repeat colonoscopy for symptoms only. - Return to referring physician. - The findings and recommendations were discussed with the patient's family. Joao Howard MD Joao Howard MD 03/21/2019 9:47:50 AM Electronically signed by Joao Howard MD Number of Addenda: 0 Note Initiated On: 03/21/2019 9:21 AM Estimated Blood Loss: Estimated blood loss: none.
[2019-03-21] MEDS ORDERED: LIDOCAINE 2% INJ 100 MG/5 ML SDV (FOR ANES.) As Ordered ONE (09:57)
[2019-03-21] MEDS ORDERED: PROPOFOL 200 MG/20 ML VIAL As Ordered ONE (09:57)
[2019-03-21 10:20] VITALS: BP 135/63
== END 2019-03-21 09:53 | disposition home or self-care (01) ==
LOC: M OPP 06:58
PROVIDERS: ATTEND Internal Medicine Gastroenterology
DX: Z12.11 Encounter for screening for malignant neoplasm of colon (principal); Z80.0 Family history of malignant neoplasm of digestive organs; K64.0 First degree hemorrhoids; K57.30 Diverticulosis of large intestine without perforation or abscess without bleeding; K44.9 Diaphragmatic hernia without obstruction or gangrene; R12 Heartburn; R07.89 Other chest pain; Z79.82 Long term (current) use of aspirin; Z79.891 Long term (current) use of opiate analgesic; Z79.899 Other long term (current) drug therapy; Z88.0 Allergy status to penicillin; Z95.5 Presence of coronary angioplasty implant and graft; Z87.891 Personal history of nicotine dependence
CPT/HCPCS: 43235; G0105

== ENCOUNTER → 2019-06-27 | Outpatient (REF) | payer MEDICARE ==
[2019-06-27 11:46] LABS: HEMOGLOBIN A1c 5.9 %
[2019-06-27 12:12] LABS: BILIRUBIN,TOTAL 0.6 MG/DL (0.2-1.0); CALCIUM LEVEL 9.4 MG/DL (8.8-10.2); CREATININE FOR GFR 1.27 MG/DL (0.70-1.30); GLOMERULAR FILTRATION RATE 57.8 (>35); MAGNESIUM LEVEL 1.9 MG/DL (1.8-2.4); POTASSIUM SERUM 4.4 MEQ/L (3.5-5.1)
== END ==
LOC: M SFHCPLAZ 08:13
PROVIDERS: ATTEND Internal Medicine
DX: I10 Essential (primary) hypertension (principal); Z79.899 Other long term (current) drug therapy

== ENCOUNTER → 2019-08-07 | Outpatient (CLI) | payer MEDICARE ==
[~2019-08-07] MED LIST changes: +OMEP-172 PO; -OMEP20CA4 PO
[2019-08-07 13:00] LABS: ALBUMIN 3.8 GM/DL (3.2-5.2); ALT/SGPT 22 U/L (12-78); BILIRUBIN,TOTAL 0.6 MG/DL (0.2-1.0); BLOOD UREA NITROGEN 18 MG/DL (7-18); CALCIUM LEVEL 9.3 MG/DL (8.8-10.2); CARBON DIOXIDE LEVEL 25 MEQ/L (21-32); CHLORIDE LEVEL 102 MEQ/L (98-107); CHOLESTEROL LEVEL 159 MG/DL (<200); CHOLESTEROL RISK RATIO 2.409 (<5); CREATININE FOR GFR 1.22 MG/DL (0.70-1.30); GLOMERULAR FILTRATION RATE > 60.0 (>35); GLUCOSE, FASTING 95 MG/DL (70-100); HDL CHOLESTEROL 66 MG/DL (>40); LDL CHOLESTEROL 77 MG/DL (<100); MAGNESIUM LEVEL 1.9 MG/DL (1.8-2.4); NON-HDL-C 93 MG/DL; POTASSIUM SERUM 4.3 MEQ/L (3.5-5.1); SODIUM LEVEL 138 MEQ/L (136-145); TOTAL 25(OH) VITAMIN D 41.6 NG/ML (30.0-100.0); TOTAL PROTEIN 7.2 GM/DL (6.4-8.2); TRIGLYCERIDES LEVEL 80 MG/DL (<150)
== END ==
LOC: M PLALAB 10:21
PROVIDERS: ATTEND Internal Medicine
DX: I10 Essential (primary) hypertension (principal); E78.00 Pure hypercholesterolemia, unspecified; M81.0 Age-related osteoporosis without current pathological fracture; Z79.899 Other long term (current) drug therapy

== ENCOUNTER → 2020-01-03 | Outpatient (REF) | payer MEDICARE ==
[~2020-01-03] MED LIST changes: -OMEP-172 PO; +OMEP1CAP73 PO; +VITA-243 PO; -VITA500T PO
[2020-01-03 13:55] LABS: HEMATOCRIT 42.7 % (42.0-52.0); HEMOGLOBIN 14.7 g/dl (13.5-17.5); MEAN CORPUSCULAR HEMOGLOBIN 32.9 pg (27.0-33.0); MEAN CORPUSCULAR HGB CONC 34.4 g/dl (32.0-36.5); MEAN CORPUSCULAR VOLUME 95.5 fl (80.0-96.0); PLATELET COUNT, AUTOMATED 363 10^3/uL (150-450); RED BLOOD COUNT 4.47 10^6/uL (4.30-6.10); WHITE BLOOD COUNT 8.5 10^3/uL (4.0-10.0)
[2020-01-03 14:35] LABS: BILIRUBIN,TOTAL 0.7 MG/DL (0.2-1.0); CALCIUM LEVEL 9.3 MG/DL (8.8-10.2); CHOLESTEROL RISK RATIO 2.583 (<5); CREATININE FOR GFR 1.27 MG/DL (0.70-1.30); GLOMERULAR FILTRATION RATE 57.8 (>35); POTASSIUM SERUM 4.2 MEQ/L (3.5-5.1)
[2020-01-03 14:40] LABS: TOTAL 25(OH) VITAMIN D 38.6 NG/ML (30.0-100.0)
== END ==
LOC: M PLALAB 10:46
PROVIDERS: ATTEND Internal Medicine
DX: Z79.899 Other long term (current) drug therapy (principal); I10 Essential (primary) hypertension; E78.00 Pure hypercholesterolemia, unspecified; M81.0 Age-related osteoporosis without current pathological fracture; Z12.5 Encounter for screening for malignant neoplasm of prostate
CPT/HCPCS: 36415; 80053; 80061; 82306; 83735; 85027; G0103

== ENCOUNTER → 2020-07-01 | Outpatient (REF) | payer MEDICARE ==
[~2020-07-01] MED LIST changes: -ASPI81TA85 PO; +ASPI81TA86 PO
[2020-07-01 14:55] LABS: ALBUMIN 3.9 GM/DL (3.2-5.2); BILIRUBIN,TOTAL 0.5 MG/DL (0.2-1.0); CALCIUM LEVEL 9.3 MG/DL (8.8-10.2); CHOLESTEROL RISK RATIO 2.476 (<5); CREATININE FOR GFR 1.27 MG/DL (0.70-1.30); GLOMERULAR FILTRATION RATE 57.7 (>35); MAGNESIUM LEVEL 1.9 MG/DL (1.8-2.4); POTASSIUM SERUM 4.2 MEQ/L (3.5-5.1); TOTAL PROTEIN 7.1 GM/DL (6.4-8.2)
== END ==
LOC: M PLALAB 09:40
PROVIDERS: ATTEND Internal Medicine
DX: E78.00 Pure hypercholesterolemia, unspecified (principal); I10 Essential (primary) hypertension

== ENCOUNTER → 2020-08-21 | Outpatient (CLI) | payer MEDICARE ==
[~2020-08-21] MED LIST changes: -BUPR150T3 PO; +BUPR150T4 PO
== END ==
LOC: M LABSMTC 13:19
PROVIDERS: ATTEND Pediatrics
DX: Z20.822 Contact with and (suspected) exposure to COVID-19 (principal)

== ENCOUNTER → 2020-12-25 | Outpatient (REF) | payer MEDICARE ==
[~2020-12-25] MED LIST changes: +BUPR150T12 PO; -BUPR150T4 PO
[2020-12-25 15:14] LABS: HEMATOCRIT 45.5 % (42.0-52.0); HEMOGLOBIN 15.2 g/dl (13.5-17.5); MEAN CORPUSCULAR HEMOGLOBIN 31.9 pg (27.0-33.0); MEAN CORPUSCULAR HGB CONC 33.4 g/dl (32.0-36.5); MEAN CORPUSCULAR VOLUME 95.6 fl (80.0-96.0); PLATELET COUNT, AUTOMATED 422 10^3/uL (150-450); RED BLOOD COUNT 4.76 10^6/uL (4.30-6.10); WHITE BLOOD COUNT 8.3 10^3/uL (4.0-10.0)
[2020-12-25 15:24] LABS: ALT/SGPT 19 U/L (12-78); BILIRUBIN,TOTAL 0.6 MG/DL (0.2-1.0); BLOOD UREA NITROGEN 13 MG/DL (7-18); CALCIUM LEVEL 10.5 MG/DL (8.8-10.2); CARBON DIOXIDE LEVEL 30 MEQ/L (21-32); CHLORIDE LEVEL 103 MEQ/L (98-107); CREATININE FOR GFR 1.07 MG/DL (0.70-1.30); GLOMERULAR FILTRATION RATE > 60.0 (>35); GLUCOSE, FASTING 95 MG/DL (70-100); POTASSIUM SERUM 4.3 MEQ/L (3.5-5.1); SODIUM LEVEL 138 MEQ/L (136-145)
[2020-12-25 15:25] LABS: ALBUMIN 4.2 GM/DL (3.2-5.2); CHOLESTEROL LEVEL 206 MG/DL (<200); CHOLESTEROL RISK RATIO 3.029 (<5); HDL CHOLESTEROL 68 MG/DL (>40); LDL CHOLESTEROL 114 MG/DL (<100); NON-HDL-C 138 MG/DL; TOTAL PROTEIN 7.3 GM/DL (6.4-8.2); TRIGLYCERIDES LEVEL 122 MG/DL (<150)
[2020-12-25 15:33] LABS: HEMOGLOBIN A1c 5.7 %
== END ==
LOC: M SFHCPLAZ 13:36
PROVIDERS: ATTEND Internal Medicine
DX: Z79.899 Other long term (current) drug therapy (principal); I10 Essential (primary) hypertension; E78.00 Pure hypercholesterolemia, unspecified; Z12.5 Encounter for screening for malignant neoplasm of prostate; R53.82 Chronic fatigue, unspecified
CPT/HCPCS: 36415; 80053; 80061; 83036; 83735; 84443; 85027; G0103

== ENCOUNTER → 2021-07-03 | Outpatient (CLI) | payer MEDICARE ==
[2021-07-03 13:53] LABS: ALBUMIN 3.8 GM/DL (3.2-5.2); ALT/SGPT 22 U/L (12-78); BILIRUBIN,TOTAL 0.6 MG/DL (0.2-1.0); BLOOD UREA NITROGEN 18 MG/DL (7-18); CALCIUM LEVEL 9.3 MG/DL (8.8-10.2); CARBON DIOXIDE LEVEL 30 MEQ/L (21-32); CHLORIDE LEVEL 102 MEQ/L (98-107); CHOLESTEROL LEVEL 148 MG/DL (<200); CHOLESTEROL RISK RATIO 2.349 (<5); CREATININE FOR GFR 1.23 MG/DL (0.70-1.30); GLOMERULAR FILTRATION RATE 59.7 (>35); GLUCOSE, FASTING 102 MG/DL (70-100); HDL CHOLESTEROL 63 MG/DL (>40); LDL CHOLESTEROL 70 MG/DL (<100); NON-HDL-C 85 MG/DL; POTASSIUM SERUM 4.4 MEQ/L (3.5-5.1); SODIUM LEVEL 137 MEQ/L (136-145); TOTAL PROTEIN 6.8 GM/DL (6.4-8.2); TRIGLYCERIDES LEVEL 76 MG/DL (<150)
[2021-07-03 14:00] LABS: VITAMIN B12 LEVEL 371 PG/ML
[2021-07-03 14:01] LABS: FOLATE > 24.0 NG/ML
== END ==
LOC: M PLALAB 09:59
PROVIDERS: ATTEND Internal Medicine
DX: E78.00 Pure hypercholesterolemia, unspecified (principal); I10 Essential (primary) hypertension; R53.82 Chronic fatigue, unspecified; Z11.59 Encounter for screening for other viral diseases
CPT/HCPCS: 36415; 80053; 80061; 82607; 82746; 83735; G0472

== ENCOUNTER → 2022-01-04 | Outpatient (CLI) | payer MEDICARE ==
[~2022-01-04] MED LIST changes: +LOSA100T45 PO; -LOSA100T50 PO
[2022-01-04 14:27] LABS: BASO # 0.1 10^3/uL (0.0-0.2); EOS # 0.2 10^3/uL (0.0-0.5); EOS % 3.1 % (0.0-3.0); HEMATOCRIT 42.7 % (42.0-52.0); LYMPH # 1.4 10^3/uL (1.5-5.0); LYMPH % 20.1 % (24.0-44.0); MEAN CORPUSCULAR HGB CONC 32.8 g/dl (32.0-36.5); MEAN CORPUSCULAR VOLUME 97.5 fl (80.0-96.0); NEUTROPHILS # 4.2 10^3/uL (1.5-8.5); NEUTROPHILS % 61.5 % (36.0-66.0); PLATELET COUNT, AUTOMATED 357 10^3/uL (150-450); RED BLOOD COUNT 4.38 10^6/uL (4.30-6.10); WHITE BLOOD COUNT 6.9 10^3/uL (4.0-10.0)
[2022-01-04 15:05] LABS: ALT/SGPT 24 U/L (12-78); BILIRUBIN,TOTAL 0.6 MG/DL (0.2-1.0); BLOOD UREA NITROGEN 21 MG/DL (7-18); CALCIUM LEVEL 9.4 MG/DL (8.8-10.2); CARBON DIOXIDE LEVEL 28 MEQ/L (21-32); CHLORIDE LEVEL 102 MEQ/L (98-107); CHOLESTEROL LEVEL 134 MG/DL (<200); CREATININE FOR GFR 1.19 MG/DL (0.70-1.30); GLOMERULAR FILTRATION RATE > 60.0 (>35); GLUCOSE, FASTING 105 MG/DL (70-100); HDL CHOLESTEROL 67 MG/DL (>40); LDL CHOLESTEROL 49 MG/DL (<100); MAGNESIUM LEVEL 2.1 MG/DL (1.8-2.4); NON-HDL-C 67 MG/DL; POTASSIUM SERUM 4.4 MEQ/L (3.5-5.1); SODIUM LEVEL 137 MEQ/L (136-145); TOTAL PROTEIN 6.8 GM/DL (6.4-8.2); TRIGLYCERIDES LEVEL 91 MG/DL (<150)
== END ==
LOC: M PLALAB 09:53
PROVIDERS: ATTEND Internal Medicine
DX: I10 Essential (primary) hypertension

== ENCOUNTER → 2022-07-05 | Outpatient (CLI) | payer MEDICARE ==
[2022-07-05 14:57] LABS: HEMATOCRIT 44.5 % (42.0-52.0); HEMOGLOBIN 14.7 g/dl (13.5-17.5); MEAN CORPUSCULAR HEMOGLOBIN 32.5 pg (27.0-33.0); MEAN CORPUSCULAR VOLUME 98.5 fl (80.0-96.0); PLATELET COUNT, AUTOMATED 360 10^3/uL (150-450); RED BLOOD COUNT 4.52 10^6/uL (4.30-6.10); WHITE BLOOD COUNT 7.4 10^3/uL (4.0-10.0)
[2022-07-05 15:15] LABS: ALBUMIN 4.3 G/DL (3.2-5.2); ALKALINE PHOSPHATASE 70 U/L (46-116); ALT/SGPT 21 U/L (7.0-40); AST/SGOT 17 U/L (<34); BILIRUBIN,TOTAL 0.6 MG/DL (0.3-1.2); BLOOD UREA NITROGEN 22 MG/DL (9-23); CALCIUM LEVEL 9.2 MG/DL (8.3-10.6); CARBON DIOXIDE LEVEL 29 MMOL/L (20-31); CHLORIDE LEVEL 100 MMOL/L (98-107); CHOLESTEROL LEVEL 151 MG/DL (<200); CREATININE FOR GFR 0.99 MG/DL (0.70-1.30); GLOMERULAR FILTRATION RATE > 60.0 (>35); GLUCOSE, FASTING 112 MG/DL (74-106); HDL CHOLESTEROL 60.3 MG/DL (>40); LDL CHOLESTEROL 73.5 MG/DL (<100); NON-HDL-C 91 MG/DL; POTASSIUM SERUM 4.2 MMOL/L (3.5-5.1); SODIUM LEVEL 137 MMOL/L (136-145); THYROID STIMULATING HORMONE 1.699 uIU/ML (0.55-4.78); TOTAL 25(OH) VITAMIN D 35.2 NG/ML (20.0-100.0); TRIGLYCERIDES LEVEL 86 MG/DL (<150); VITAMIN B12 LEVEL 716 PG/ML (211-911)
[2022-07-05 16:42] LABS: HEMOGLOBIN A1c 5.6 % (4.0-6.0)
[2022-07-05 17:05] LABS: CREATININE, URINE 126.2 MG/DL; MAU/CREAT RATIO 4.7 MCG/MG (0.0-30.0)
== END ==
LOC: M PLALAB 11:08
PROVIDERS: ATTEND Internal Medicine Hematology
DX: I10 Essential (primary) hypertension (principal); Z79.899 Other long term (current) drug therapy

== ENCOUNTER → 2022-07-20 | Outpatient (CLI) | payer MEDICARE ==
[~2022-07-20] MED LIST changes: +PROHANCE 279.3MG/ML 15ML VIAL ONE; +PROHANCE 279.3MG/ML 5ML VIAL ONE
== END ==
LOC: M PLAIMG 09:20
PROVIDERS: ATTEND Internal Medicine Hematology
DX: M54.41 Lumbago with sciatica, right side (principal); S22.080D Wedge compression fracture of T11-T12 vertebra, subsequent encounter for fracture with routine healing; M51.36 Other intervertebral disc degeneration, lumbar region; M48.061 Spinal stenosis, lumbar region without neurogenic claudication
CPT/HCPCS: 72158; A9576

== ENCOUNTER 2022-08-31 09:56 | Emergency (ER) | payer MEDICARE ==
[~2022-08-31] VITALS: Ht 172.7 cm; Wt 98.2 kg
[~2022-08-31 09:56] MED LIST changes: -PROHANCE 279.3MG/ML 15ML VIAL ONE; -PROHANCE 279.3MG/ML 5ML VIAL ONE
[2022-08-31 10:37] LABS: BASO # 0.1 10^3/uL (0.0-0.2); BASO % 1.2 % (0.0-1.0); EOS # 0.1 10^3/uL (0.0-0.5); EOS % 1.5 % (0.0-3.0); HEMATOCRIT 41.9 % (42.0-52.0); HEMOGLOBIN 13.9 g/dl (13.5-17.5); LYMPH # 1.5 10^3/uL (1.5-5.0); LYMPH % 19.6 % (24.0-44.0); MEAN CORPUSCULAR HEMOGLOBIN 32.7 pg (27.0-33.0); MEAN CORPUSCULAR HGB CONC 33.2 g/dl (32.0-36.5); MEAN CORPUSCULAR VOLUME 98.6 fl (80.0-96.0); MONO # 0.9 10^3/uL (0.0-0.8); MONO % 11.4 % (2.0-8.0); NEUTROPHILS # 5.2 10^3/uL (1.5-8.5); PLATELET COUNT, AUTOMATED 311 10^3/uL (150-450); RED BLOOD COUNT 4.25 10^6/uL (4.30-6.10); WHITE BLOOD COUNT 7.8 10^3/uL (4.0-10.0)
[2022-08-31 10:47] LABS: INR 1.03; PROTHROMBIN TIME 13.7 SECONDS (12.5-14.5)
[2022-08-31 10:57] LABS: LIPASE 25 U/L (12-53)
[2022-08-31 10:59] LABS: ALKALINE PHOSPHATASE 63 U/L (46-116); ALT/SGPT 17 U/L (7.0-40); AST/SGOT 20 U/L (<34); BILIRUBIN,DIRECT 0.2 MG/DL (<0.4); BILIRUBIN,TOTAL 0.6 MG/DL (0.3-1.2); BLOOD UREA NITROGEN 22 MG/DL (9-23); CALCIUM LEVEL 9.2 MG/DL (8.3-10.6); CARBON DIOXIDE LEVEL 26 MMOL/L (20-31); CHLORIDE LEVEL 102 MMOL/L (98-107); CK-MB VALUE MASS 1.3 NG/ML (<3.6); CREATININE FOR GFR 1.04 MG/DL (0.70-1.30); GLOMERULAR FILTRATION RATE > 60.0 (>35); GLUCOSE, FASTING 136 MG/DL (74-106); POTASSIUM SERUM 3.9 MMOL/L (3.5-5.1); SODIUM LEVEL 137 MMOL/L (136-145); TOTAL PROTEIN 6.9 G/DL (5.7-8.2)
[2022-08-31 11:01] LABS: CPK CREATINE PHOSPHOKINASE 124 U/L (46-171); MB/CK RELATIVE INDEX 1.04 (< OR =4)
[2022-08-31 12:01] LABS: CK-MB VALUE MASS 1.2 NG/ML (<3.6)
[2022-08-31 12:03] LABS: MB/CK RELATIVE INDEX 1.15 (< OR =4)
[2022-08-31 13:11] VITALS: BP 105/85
== END 2022-08-31 13:33 | disposition home or self-care (01) ==
LOC: EDBD 09:56 → M ED 12:02
DX: R07.9 Chest pain, unspecified (principal); I25.10 Atherosclerotic heart disease of native coronary artery without angina pectoris; I10 Essential (primary) hypertension; E78.5 Hyperlipidemia, unspecified; K21.9 Gastro-esophageal reflux disease without esophagitis; Z88.0 Allergy status to penicillin; Z79.51 Long term (current) use of inhaled steroids; Z79.82 Long term (current) use of aspirin; Z79.899 Other long term (current) drug therapy

== ENCOUNTER → 2022-09-29 | Outpatient (CLI) | payer MEDICARE ==
[2022-09-29 14:24] LABS: BLOOD UREA NITROGEN 20 MG/DL (9-23); CREATININE FOR GFR 1.05 MG/DL (0.70-1.30); GLOMERULAR FILTRATION RATE > 60.0 (>35)
== END ==
LOC: M PLALAB 09:40
PROVIDERS: ATTEND Internal Medicine Pulmonary Disease
DX: R06.00 Dyspnea, unspecified (principal)

== ENCOUNTER → 2022-11-05 | Outpatient (CLI) | payer MEDICARE ==
[~2022-11-05] MED LIST changes: +ISOVUE-370 76% 100ML VIAL As Ordered ONE
== END ==
LOC: M RAD 08:29
PROVIDERS: ATTEND Internal Medicine Pulmonary Disease
DX: R06.00 Dyspnea, unspecified (principal); K44.9 Diaphragmatic hernia without obstruction or gangrene; I70.0 Atherosclerosis of aorta; J98.11 Atelectasis; J84.10 Pulmonary fibrosis, unspecified
CPT/HCPCS: 71275; Q9967

== ENCOUNTER → 2022-12-02 | Outpatient (CLI) | payer MEDICARE ==
[~2022-12-02] MED LIST changes: +ACET-910 PO; +ATRO0.063 INH; +COQ150CH PO; +HYDR-3713 PO; -ISOVUE-370 76% 100ML VIAL As Ordered ONE; -LOSA100T45 PO; +LOSA100T46 PO; +LOSA50TA5 PO; +METHACHOLINE KIT INH ONE; +OMEG10002 PO; +SYMB16INH INH; +collagen PO
== END ==
LOC: M CARPUL 13:28
PROVIDERS: ATTEND Internal Medicine Pulmonary Disease
DX: R06.00 Dyspnea, unspecified (principal)
CPT/HCPCS: 94070; 95070; J7674

== ENCOUNTER 2022-12-21 09:27 | Day surgery (SDC) | payer MEDICARE ==
[~2022-12-21] VITALS: Ht 172.7 cm; Wt 92.7 kg
[~2022-12-21 09:27] MED LIST changes: +CYCLOPENTOLATE 1% OPHTH SOLN 2ML BTL OS SCH; +LIDOCAINE 1% SDV 5ML VIAL As Ordered ONE; -METHACHOLINE KIT INH ONE; +MIDAZOLAM INJ 2MG/2ML VIAL As Ordered ONE; +OFLOXACIN 0.3 % (OCUFLOX) OPTH SOL 5ML OS SCH; +PHENYLEPHRINE 2.5% OPHTH SOL 2ML OS SCH; +PROPARACAINE 0.5% OPHTH SOL 15ML OS ONE; +TOBRADEX OPHTH OINT 3.5 GM As Ordered ONE; +TROPICAMIDE 1% OPHTH SOLN 15ML OS SCH; +fentaNYL 100 MCG/2 ML INJECTION As Ordered ONE
[2022-12-21] MEDS ORDERED: BSS IRR 500ML/OMIDRIA 4ML IRR BAG (OR ONLY) As Ordered ONE (10:55)
[2022-12-21 11:56] VITALS: BP 142/63
== END 2022-12-21 12:14 | disposition home or self-care (01) ==
LOC: M SDC 09:27
PROVIDERS: ATTEND Ophthalmology
DX: H25.12 Age-related nuclear cataract, left eye (principal); H21.81 Floppy iris syndrome; I10 Essential (primary) hypertension; I20.9 Angina pectoris, unspecified; E78.5 Hyperlipidemia, unspecified; K21.9 Gastro-esophageal reflux disease without esophagitis; F17.200 Nicotine dependence, unspecified, uncomplicated; J45.909 Unspecified asthma, uncomplicated; N40.0 Benign prostatic hyperplasia without lower urinary tract symptoms; Z88.0 Allergy status to penicillin; Z79.899 Other long term (current) drug therapy
CPT/HCPCS: 66982; J1097; J2250; J3010; V2632

== ENCOUNTER → 2023-01-04 | Outpatient (CLI) | payer MEDICARE ==
[~2023-01-04] MED LIST changes: -CYCLOPENTOLATE 1% OPHTH SOLN 2ML BTL OS SCH; -LIDOCAINE 1% SDV 5ML VIAL As Ordered ONE; -MIDAZOLAM INJ 2MG/2ML VIAL As Ordered ONE; -OFLOXACIN 0.3 % (OCUFLOX) OPTH SOL 5ML OS SCH; -PHENYLEPHRINE 2.5% OPHTH SOL 2ML OS SCH; -PROPARACAINE 0.5% OPHTH SOL 15ML OS ONE; -TOBRADEX OPHTH OINT 3.5 GM As Ordered ONE; -TROPICAMIDE 1% OPHTH SOLN 15ML OS SCH; -fentaNYL 100 MCG/2 ML INJECTION As Ordered ONE
[2023-01-04 15:33] LABS: HEMATOCRIT 42.7 % (42.0-52.0); HEMOGLOBIN 14.3 g/dl (13.5-17.5); MEAN CORPUSCULAR HEMOGLOBIN 32.6 pg (27.0-33.0); MEAN CORPUSCULAR HGB CONC 33.5 g/dl (32.0-36.5); MEAN CORPUSCULAR VOLUME 97.3 fl (80.0-96.0); PLATELET COUNT, AUTOMATED 355 10^3/uL (150-450); RED BLOOD COUNT 4.39 10^6/uL (4.30-6.10); WHITE BLOOD COUNT 7.6 10^3/uL (4.0-10.0)
[2023-01-04 15:58] LABS: CREATININE, URINE 72.4 MG/DL; MALB URINE SIEMENS < 3.0 MG/L; MAU/CREAT RATIO 4.1 MCG/MG (0.0-30.0)
[2023-01-04 16:00] LABS: C REACTIVE PROTEIN QUANTITATIV < 0.40 MG/DL (<1.0); FREE T4 1.17 NG/DL (0.89-1.76); TOTAL 25(OH) VITAMIN D 32.8 NG/ML (20.0-100.0); VITAMIN B12 LEVEL 619 PG/ML (211-911)
[2023-01-04 16:01] LABS: ALBUMIN 4.3 G/DL (3.2-5.2); ALKALINE PHOSPHATASE 67 U/L (46-116); ALT/SGPT 18 U/L (7.0-40); AST/SGOT 13 U/L (<34); BILIRUBIN,TOTAL 0.6 MG/DL (0.3-1.2); BLOOD UREA NITROGEN 21 MG/DL (9-23); CALCIUM LEVEL 9.2 MG/DL (8.3-10.6); CARBON DIOXIDE LEVEL 30 MMOL/L (20-31); CHLORIDE LEVEL 103 MMOL/L (98-107); CHOLESTEROL LEVEL 134 MG/DL (<200); CHOLESTEROL RISK RATIO 2.15 (<5); CREATININE FOR GFR 1.11 MG/DL (0.70-1.30); GLOMERULAR FILTRATION RATE > 60.0 (>35); GLUCOSE, FASTING 83 MG/DL (74-106); HDL CHOLESTEROL 62.2 MG/DL (>40); LDL CHOLESTEROL 57.6 MG/DL (<100); NON-HDL-C 71.8 MG/DL; POTASSIUM SERUM 4.3 MMOL/L (3.5-5.1); SODIUM LEVEL 140 MMOL/L (136-145); THYROID STIMULATING HORMONE 1.549 uIU/ML (0.55-4.78); TOTAL PROTEIN 6.9 G/DL (5.7-8.2); TRIGLYCERIDES LEVEL 71 MG/DL (<150)
[2023-01-04 16:13] LABS: HEMOGLOBIN A1c 5.8 % (4.0-6.0)
== END ==
LOC: M PLALAB 12:22
PROVIDERS: ATTEND Internal Medicine Hematology
DX: I25.10 Atherosclerotic heart disease of native coronary artery without angina pectoris (principal); Z79.899 Other long term (current) drug therapy

== ENCOUNTER → 2023-08-18 | Outpatient (CLI) | payer MEDICARE ==
[2023-08-18 14:17] LABS: HEMATOCRIT 43.1 % (42.0-52.0); HEMOGLOBIN 14.7 g/dl (13.5-17.5); MEAN CORPUSCULAR HEMOGLOBIN 33.1 pg (27.0-33.0); MEAN CORPUSCULAR HGB CONC 34.1 g/dl (32.0-36.5); MEAN CORPUSCULAR VOLUME 97.1 fl (80.0-96.0); PLATELET COUNT, AUTOMATED 353 10^3/uL (150-450); RED BLOOD COUNT 4.44 10^6/uL (4.30-6.10); WHITE BLOOD COUNT 8.2 10^3/uL (4.0-10.0)
[2023-08-18 14:30] LABS: HEMOGLOBIN A1c 5.7 % (4.0-6.0)
[2023-08-18 14:50] LABS: CREATININE, URINE 140.6 MG/DL; MAU/CREAT RATIO 7.1 MCG/MG (0.0-30.0)
[2023-08-18 14:51] LABS: C REACTIVE PROTEIN QUANTITATIV < 0.40 MG/DL (<1.0)
[2023-08-18 14:53] LABS: ALBUMIN 4.3 G/DL (3.2-5.2); ALKALINE PHOSPHATASE 62 U/L (46-116); ALT/SGPT 22 U/L (7.0-40); AST/SGOT 15 U/L (<34); BILIRUBIN,TOTAL 0.7 MG/DL (0.3-1.2); BLOOD UREA NITROGEN 21 MG/DL (9-23); CALCIUM LEVEL 9.5 MG/DL (8.3-10.6); CARBON DIOXIDE LEVEL 29 MMOL/L (20-31); CHLORIDE LEVEL 101 MMOL/L (98-107); CHOLESTEROL LEVEL 153 MG/DL (<200); CHOLESTEROL RISK RATIO 2.12 (<5); CREATININE FOR GFR 1.08 MG/DL (0.70-1.30); GLOMERULAR FILTRATION RATE > 60.0 (>35); GLUCOSE, FASTING 97 MG/DL (74-106); HDL CHOLESTEROL 71.9 MG/DL (>40); LDL CHOLESTEROL 67.3 MG/DL (<100); NON-HDL-C 81.1 MG/DL; POTASSIUM SERUM 4.2 MMOL/L (3.5-5.1); SODIUM LEVEL 137 MMOL/L (136-145); TRIGLYCERIDES LEVEL 69 MG/DL (<150)
[2023-08-18 14:54] LABS: THYROID STIMULATING HORMONE 1.797 uIU/ML (0.55-4.78)
== END ==
LOC: M PLALAB 10:55
PROVIDERS: ATTEND Internal Medicine Hematology
DX: I25.10 Atherosclerotic heart disease of native coronary artery without angina pectoris (principal); Z79.899 Other long term (current) drug therapy

== ENCOUNTER → 2023-10-26 | Outpatient (REF) | payer MEDICARE | LOC: M SFHCPLAZ 15:18 | PROVIDERS: ATTEND Physician Assistant | DX: R30.0 Dysuria (principal) ==

== ENCOUNTER → 2023-11-24 | Outpatient (CLI) | payer MEDICARE ==
[~2023-11-24] MED LIST changes: +TIZA4CAP3 PO; -TIZA4CAP6 PO
== END ==
LOC: M PLALAB 11:46
PROVIDERS: ATTEND Internal Medicine Hematology
DX: M79.89 Other specified soft tissue disorders (principal)

== ENCOUNTER → 2024-02-21 | Outpatient (CLI) | payer MEDICARE ==
[2024-02-21 18:44] LABS: BASO # 0.1 10^3/uL (0.0-0.2); BASO % 0.9 % (0.0-1.0); EOS # 0.3 10^3/uL (0.0-0.5); EOS % 3.6 % (0.0-3.0); HEMATOCRIT 37.6 % (42.0-52.0); HEMOGLOBIN 12.9 g/dl (13.5-17.5); LYMPH # 1.5 10^3/uL (1.5-5.0); LYMPH % 20.2 % (24.0-44.0); MEAN CORPUSCULAR HEMOGLOBIN 32.7 pg (27.0-33.0); MEAN CORPUSCULAR HGB CONC 34.3 g/dl (32.0-36.5); MEAN CORPUSCULAR VOLUME 95.2 fl (80.0-96.0); MONO # 1.1 10^3/uL (0.0-0.8); MONO % 14.8 % (2.0-8.0); NEUTROPHILS # 4.5 10^3/uL (1.5-8.5); NEUTROPHILS % 60.2 % (36.0-66.0); PLATELET COUNT, AUTOMATED 364 10^3/uL (150-450); RED BLOOD COUNT 3.95 10^6/uL (4.30-6.10); WHITE BLOOD COUNT 7.5 10^3/uL (4.0-10.0)
[2024-02-21 19:05] LABS: C REACTIVE PROTEIN QUANTITATIV < 0.40 MG/DL (<1.0)
[2024-02-21 19:06] LABS: ALBUMIN 4.1 G/DL (3.2-5.2); ALKALINE PHOSPHATASE 59 U/L (46-116); ALT/SGPT 16 U/L (7.0-40); AST/SGOT < 8 U/L (<34); BILIRUBIN,TOTAL 0.5 MG/DL (0.3-1.2); BLOOD UREA NITROGEN 18 MG/DL (9-23); CALCIUM LEVEL 9.3 MG/DL (8.3-10.6); CARBON DIOXIDE LEVEL 29 MMOL/L (20-31); CHLORIDE LEVEL 100 MMOL/L (98-107); CHOLESTEROL LEVEL 131 MG/DL (<200); CHOLESTEROL RISK RATIO 2.58 (<5); CREATININE FOR GFR 1.04 MG/DL (0.70-1.30); CREATININE, URINE 120.7 MG/DL; GLOMERULAR FILTRATION RATE > 60.0 (>35); GLUCOSE, FASTING 71 MG/DL (74-106); HDL CHOLESTEROL 50.7 MG/DL (>40); LDL CHOLESTEROL 52.3 MG/DL (<100); NON-HDL-C 80.3 MG/DL; POTASSIUM SERUM 3.7 MMOL/L (3.5-5.1); SODIUM LEVEL 138 MMOL/L (136-145); THYROID STIMULATING HORMONE 1.504 uIU/ML (0.55-4.78); TOTAL PROTEIN 6.4 G/DL (5.7-8.2); TRIGLYCERIDES LEVEL 140 MG/DL (<150)
[2024-02-21 19:07] LABS: TOTAL 25(OH) VITAMIN D 38.8 NG/ML (20.0-100.0); VITAMIN B12 LEVEL 971 PG/ML (211-911)
[2024-02-21 19:08] LABS: FREE T4 1.27 NG/DL (0.89-1.76); MAU/CREAT RATIO 4.1 MCG/MG (0.0-30.0)
[2024-02-21 19:41] LABS: HEMOGLOBIN A1c 5.6 % (4.0-6.0)
== END ==
LOC: M PLALAB 15:24
PROVIDERS: ATTEND Internal Medicine Hematology
DX: I10 Essential (primary) hypertension (principal); Z79.899 Other long term (current) drug therapy

== ENCOUNTER → 2024-03-23 | Outpatient (CLI) | payer MEDICARE ==
[2024-03-23 10:58] LABS: ALBUMIN 4.3 G/DL (3.2-5.2); ALKALINE PHOSPHATASE 62 U/L (46-116); ALT/SGPT 18 U/L (7.0-40); AST/SGOT 12 U/L (<34); BILIRUBIN,TOTAL 0.7 MG/DL (0.3-1.2); BLOOD UREA NITROGEN 19 MG/DL (9-23); CALCIUM LEVEL 9.7 MG/DL (8.3-10.6); CARBON DIOXIDE LEVEL 30 MMOL/L (20-31); CHLORIDE LEVEL 102 MMOL/L (98-107); CREATININE FOR GFR 1.06 MG/DL (0.70-1.30); GLOMERULAR FILTRATION RATE > 60.0 (>35); GLUCOSE, FASTING 101 MG/DL (74-106); SODIUM LEVEL 137 MMOL/L (136-145); TOTAL PROTEIN 7.1 G/DL (5.7-8.2)
[2024-03-23 11:02] LABS: THYROID STIMULATING HORMONE 1.685 uIU/ML (0.55-4.78); THYROXINE (T4) 6.8 UG/DL (4.5-10.9)
[2024-03-23 11:03] LABS: FOLATE > 24.0 NG/ML (>5.4); FREE THYROXINE INDEX 2.4 % (1.4-3.8); T UPTAKE 35.7 % (22.5-37.0); VITAMIN B12 LEVEL 695 PG/ML (211-911)
[2024-03-26 14:41] LABS: ANA SCREEN, IFA NEGATIVE (NEGATIVE)
== END ==
LOC: M PLALAB 09:08
PROVIDERS: ATTEND Psychiatry & Neurology Neurology
DX: R41.3 Other amnesia (principal); E07.9 Disorder of thyroid, unspecified

== ENCOUNTER → 2024-07-17 | Outpatient (REF) | payer MEDICARE | LOC: M SFHCPLAZ 17:04 | PROVIDERS: ATTEND Physician Assistant Medical | DX: R30.0 Dysuria (principal) ==

== ENCOUNTER → 2024-07-23 | Outpatient (REF) | payer MEDICARE ==
[2024-07-23 18:22] LABS: APPEARANCE, URINE CLOUDY (CLEAR); BACTERIA, URINE AUTO NEGATIVE (NEGATIVE); BILIRUBIN, URINE AUTO NEGATIVE (NEGATIVE); BLOOD, URINE BLOOD NEGATIVE (NEGATIVE); COLOR, URINE YELLOW (YELLOW); GLUCOSE, URINE (UA) AUTO NEGATIVE (NEGATIVE); KETONE, URINE AUTO TRACE mg/dL (NEGATIVE); LEUKOCYTE ESTERASE, URINE AUTO 2+ (NEGATIVE); NITRITE, URINE AUTO NEGATIVE (NEGATIVE); PROTEIN, URINE AUTO 1+ mg/dL (NEGATIVE); RBC, URINE AUTO 4 /HPF (0-3); SPECIFIC GRAVITY URINE AUTO 1.013 (1.002-1.035); SQUAMOUS EPITHELIAL CELL UR AU 0 /HPF (0-6); UROBILINOGEN, URINE AUTO 0.2 mg/dL (0.0-2.0); WBC, URINE AUTO TNTC /HPF (0-3)
== END ==
LOC: M SMT 17:16
PROVIDERS: ATTEND Nurse Practitioner Family
DX: R35.0 Frequency of micturition (principal)

== ENCOUNTER → 2024-10-18 | Outpatient (REF) | payer MEDICARE ==
[~2024-10-18] MED LIST changes: -BAYE325T12 PO; +BAYE325T2 PO
[2024-10-18 18:02] LABS: APPEARANCE, URINE TURBID (CLEAR); BACTERIA, URINE AUTO 1+ (NEGATIVE); BILIRUBIN, URINE AUTO NEGATIVE (NEGATIVE); BLOOD, URINE BLOOD NEGATIVE (NEGATIVE); COLOR, URINE YELLOW (YELLOW); GLUCOSE, URINE (UA) AUTO NEGATIVE (NEGATIVE); KETONE, URINE AUTO NEGATIVE (NEGATIVE); LEUKOCYTE ESTERASE, URINE AUTO 3+ (NEGATIVE); MUCUS, URINE SMALL (NEGATIVE); NITRITE, URINE AUTO NEGATIVE (NEGATIVE); PROTEIN, URINE AUTO 2+ mg/dL (NEGATIVE); RBC, URINE AUTO 3 /HPF (0-3); SPECIFIC GRAVITY URINE AUTO 1.016 (1.002-1.035); SQUAMOUS EPITHELIAL CELL UR AU 0 /HPF (0-6); UROBILINOGEN, URINE AUTO 0.2 mg/dL (0.0-2.0); WBC, URINE AUTO TNTC /HPF (0-3)
== END ==
LOC: M SMT 16:50
PROVIDERS: ATTEND Physician Assistant
DX: R39.9 Unspecified symptoms and signs involving the genitourinary system (principal)

== ENCOUNTER → 2024-11-01 | Outpatient (REF) | payer MEDICARE ==
[2024-11-01 14:37] LABS: APPEARANCE, URINE TURBID (CLEAR); BACTERIA, URINE AUTO NEGATIVE (NEGATIVE); BILIRUBIN, URINE AUTO NEGATIVE (NEGATIVE); BLOOD, URINE BLOOD NEGATIVE (NEGATIVE); COLOR, URINE STRAW (YELLOW); GLUCOSE, URINE (UA) AUTO NEGATIVE (NEGATIVE); KETONE, URINE AUTO NEGATIVE (NEGATIVE); LEUKOCYTE ESTERASE, URINE AUTO 3+ (NEGATIVE); NITRITE, URINE AUTO NEGATIVE (NEGATIVE); PROTEIN, URINE AUTO 1+ mg/dL (NEGATIVE); RBC, URINE AUTO 9 /HPF (0-3); SPECIFIC GRAVITY URINE AUTO 1.009 (1.002-1.035); SQUAMOUS EPITHELIAL CELL UR AU 0 /HPF (0-6); UROBILINOGEN, URINE AUTO 0.2 mg/dL (0.0-2.0); WBC, URINE AUTO TNTC /HPF (0-3)
== END ==
LOC: M SMT 13:05
PROVIDERS: ATTEND Physician Assistant
DX: N39.0 Urinary tract infection, site not specified (principal)

== ENCOUNTER → 2024-11-26 | Outpatient (REF) | payer MEDICARE ==
[~2024-11-26] MED LIST changes: -FLOM0.4C39 PO; +TAMS-18 PO
[2024-11-26 15:30] LABS: APPEARANCE, URINE TURBID (CLEAR); BACTERIA, URINE AUTO 2+ (NEGATIVE); BILIRUBIN, URINE AUTO NEGATIVE (NEGATIVE); BLOOD, URINE BLOOD NEGATIVE (NEGATIVE); COLOR, URINE AMBER (YELLOW); GLUCOSE, URINE (UA) AUTO NEGATIVE (NEGATIVE); KETONE, URINE AUTO NEGATIVE (NEGATIVE); LEUKOCYTE ESTERASE, URINE AUTO 3+ (NEGATIVE); NITRITE, URINE AUTO NEGATIVE (NEGATIVE); PROTEIN, URINE AUTO 1+ mg/dL (NEGATIVE); RBC, URINE AUTO 5 /HPF (0-3); SPECIFIC GRAVITY URINE AUTO 1.013 (1.002-1.035); SQUAMOUS EPITHELIAL CELL UR AU 0 /HPF (0-6); UROBILINOGEN, URINE AUTO 0.2 mg/dL (0.0-2.0); WBC, URINE AUTO TNTC /HPF (0-3)
== END ==
LOC: M SMT 14:55
PROVIDERS: ATTEND Urology
DX: R39.9 Unspecified symptoms and signs involving the genitourinary system (principal)

== ENCOUNTER → 2025-03-15 | Outpatient (REF) | payer MEDICARE ==
[2025-03-15 15:20] LABS: APPEARANCE, URINE CLOUDY (CLEAR); BACTERIA, URINE AUTO 1+ (NEGATIVE); BILIRUBIN, URINE AUTO NEGATIVE (NEGATIVE); BLOOD, URINE BLOOD NEGATIVE (NEGATIVE); GLUCOSE, URINE (UA) AUTO NEGATIVE (NEGATIVE); KETONE, URINE AUTO TRACE mg/dL (NEGATIVE); LEUKOCYTE ESTERASE, URINE AUTO 3+ (NEGATIVE); NITRITE, URINE AUTO NEGATIVE (NEGATIVE); PROTEIN, URINE AUTO 1+ mg/dL (NEGATIVE); RBC, URINE AUTO 0 /HPF (0-3); SPECIFIC GRAVITY URINE AUTO 1.015 (1.002-1.035); SQUAMOUS EPITHELIAL CELL UR AU 0 /HPF (0-6); UROBILINOGEN, URINE AUTO 0.2 mg/dL (0.0-2.0); WBC, URINE AUTO TNTC /HPF (0-3)
== END ==
LOC: M SMT 14:53
PROVIDERS: ATTEND Physician Assistant
DX: R39.9 Unspecified symptoms and signs involving the genitourinary system (principal)

== ENCOUNTER → 2025-04-15 | Outpatient (REF) | payer MEDICARE ==
[2025-04-15 13:44] LABS: APPEARANCE, URINE TURBID (CLEAR); BACTERIA, URINE AUTO 2+ (NEGATIVE); BILIRUBIN, URINE AUTO NEGATIVE (NEGATIVE); BLOOD, URINE BLOOD 1+ (NEGATIVE); GLUCOSE, URINE (UA) AUTO NEGATIVE (NEGATIVE); KETONE, URINE AUTO TRACE mg/dL (NEGATIVE); LEUKOCYTE ESTERASE, URINE AUTO 2+ (NEGATIVE); MUCUS, URINE SMALL (NEGATIVE); NITRITE, URINE AUTO NEGATIVE (NEGATIVE); PROTEIN, URINE AUTO 3+ mg/dL (NEGATIVE); RBC, URINE AUTO 26 /HPF (0-3); SPECIFIC GRAVITY URINE AUTO 1.024 (1.002-1.035); SQUAMOUS EPITHELIAL CELL UR AU 0 /HPF (0-6); UROBILINOGEN, URINE AUTO 0.2 mg/dL (0.0-2.0); WBC, URINE AUTO TNTC /HPF (0-3)
== END ==
LOC: M SMT 12:52
PROVIDERS: ATTEND Urology
DX: R39.9 Unspecified symptoms and signs involving the genitourinary system (principal)

== ENCOUNTER → 2025-04-29 | Outpatient (REF) | payer MEDICARE ==
[2025-04-29 14:07] LABS: APPEARANCE, URINE TURBID (CLEAR); BACTERIA, URINE AUTO 1+ (NEGATIVE); BILIRUBIN, URINE AUTO NEGATIVE (NEGATIVE); BLOOD, URINE BLOOD NEGATIVE (NEGATIVE); GLUCOSE, URINE (UA) AUTO NEGATIVE (NEGATIVE); KETONE, URINE AUTO NEGATIVE (NEGATIVE); LEUKOCYTE ESTERASE, URINE AUTO 3+ (NEGATIVE); NITRITE, URINE AUTO NEGATIVE (NEGATIVE); PROTEIN, URINE AUTO 1+ mg/dL (NEGATIVE); RBC, URINE AUTO 26 /HPF (0-3); SPECIFIC GRAVITY URINE AUTO 1.010 (1.002-1.035); SQUAMOUS EPITHELIAL CELL UR AU 0 /HPF (0-6); UROBILINOGEN, URINE AUTO 0.2 mg/dL (0.0-2.0); WBC, URINE AUTO TNTC /HPF (0-3)
== END ==
LOC: M SMT 12:37
PROVIDERS: ATTEND Physician Assistant
DX: R39.9 Unspecified symptoms and signs involving the genitourinary system (principal)

== ENCOUNTER → 2025-05-10 | Outpatient (CLI) | payer MEDICARE | LOC: M RAD 09:47 | PROVIDERS: ATTEND Nurse Practitioner Adult Health | DX: R06.02 Shortness of breath (principal); K44.9 Diaphragmatic hernia without obstruction or gangrene; J84.10 Pulmonary fibrosis, unspecified; R91.8 Other nonspecific abnormal finding of lung field ==

== ENCOUNTER → 2025-05-27 | Outpatient (REF) | payer MEDICARE ==
[2025-05-27 13:53] LABS: APPEARANCE, URINE CLOUDY (CLEAR); BACTERIA, URINE AUTO 2+ (NEGATIVE); BILIRUBIN, URINE AUTO NEGATIVE (NEGATIVE); BLOOD, URINE BLOOD NEGATIVE (NEGATIVE); GLUCOSE, URINE (UA) AUTO NEGATIVE (NEGATIVE); KETONE, URINE AUTO NEGATIVE (NEGATIVE); LEUKOCYTE ESTERASE, URINE AUTO 3+ (NEGATIVE); NITRITE, URINE AUTO NEGATIVE (NEGATIVE); PROTEIN, URINE AUTO 1+ mg/dL (NEGATIVE); RBC, URINE AUTO 40 /HPF (0-3); SPECIFIC GRAVITY URINE AUTO 1.012 (1.002-1.035); SQUAMOUS EPITHELIAL CELL UR AU 2 /HPF (0-6); TRANSITIONAL EPITHELIAL AUTO 1 /HPF; UROBILINOGEN, URINE AUTO 0.2 mg/dL (0.0-2.0); WBC, URINE AUTO TNTC /HPF (0-3)
== END ==
LOC: M SMT 13:00
PROVIDERS: ATTEND Nurse Practitioner Family
DX: R39.9 Unspecified symptoms and signs involving the genitourinary system (principal); B96.20 Unspecified Escherichia coli [E. coli] as the cause of diseases classified elsewhere

== ENCOUNTER → 2025-07-01 | Outpatient (REF) | payer MEDICARE ==
[2025-07-01 15:25] LABS: APPEARANCE, URINE TURBID (CLEAR); BACTERIA, URINE AUTO 2+ (NEGATIVE); BILIRUBIN, URINE AUTO NEGATIVE (NEGATIVE); BLOOD, URINE BLOOD NEGATIVE (NEGATIVE); GLUCOSE, URINE (UA) AUTO NEGATIVE (NEGATIVE); KETONE, URINE AUTO NEGATIVE (NEGATIVE); LEUKOCYTE ESTERASE, URINE AUTO 3+ (NEGATIVE); MUCUS, URINE SMALL (NEGATIVE); NITRITE, URINE AUTO NEGATIVE (NEGATIVE); PROTEIN, URINE AUTO 2+ mg/dL (NEGATIVE); RBC, URINE AUTO 7 /HPF (0-3); SPECIFIC GRAVITY URINE AUTO 1.011 (1.002-1.035); SQUAMOUS EPITHELIAL CELL UR AU 0 /HPF (0-6); UROBILINOGEN, URINE AUTO 0.2 mg/dL (0.0-2.0); WBC, URINE AUTO TNTC /HPF (0-3)
== END ==
LOC: M SMT 15:02
PROVIDERS: ATTEND Physician Assistant
DX: R39.9 Unspecified symptoms and signs involving the genitourinary system (principal)